=== PATIENT | female | born 1945 | race Caucasian/White ===

== ENCOUNTER 2017-01-29 19:30 | Outpatient (CLI) | payer MEDICARE, OTHER | END 2017-01-29 19:31 | disposition home or self-care (01) | LOC: SLEEPLAB 19:30 | PROVIDERS: ATTEND Family Medicine | DX: G47.33 Obstructive sleep apnea (adult) (pediatric) (principal); E66.9 Obesity, unspecified; R51 Headache | CPT/HCPCS: 95811 ==

== ENCOUNTER 2017-09-25 18:49 | Emergency (ER) | payer MEDICARE, OTHER ==
[2017-09-25 19:38] LABS: Bilirubin Negative (Negative); Blood, Urine Negative (Negative); Clarity Clear (Clear); Glucose, Urine (Dipstick) Negative (Negative); Leukocyte Negative (Negative); Nitrite Negative (Negative); Protein, Urine (Dipstick) Negative (Neg-Trace); Urobilinogen 0.2 mg/dL (0.2-1.0)
[2017-09-25] MEDS ORDERED: Morphine 5 MG/ML SYRINGE ONE (19:45)
[2017-09-25] MEDS ORDERED: Ondansetron HCl/PF 4 MG/2 ML Vial ONE (19:52)
[2017-09-25 20:13] LABS: Eosinophils 7 % (0-10); Hemoglobin 13.8 g/dL (12.0-16.0); Lymphocytes 15 % (21-51); MDiff Complete? YES; Mean Corpuscular HGB CONC 32.1 g/dL (32.0-36.0); Mean Corpuscular Hemoglobin 25.3 pg (27.0-31.0); Mean Corpuscular Volume 78.9 fl (81.0-99.0); Mean Platelet Volume 7.8 fL (7.4-10.4); Monocytes 13 % (0-10); Neutrophil 59 % (42-75); PLT Morphology Comment Appears Adequate; Platelet Count 262 thou/uL (130-400); RBC Distribution Width 13.7 % (11.5-14.5); Reactive Lymphocytes 5 % (0-10); Red Blood Cell (RBC) Count 5.45 mill/uL (4.20-5.40); Stomatocytes SLIGHT = 2-5 cells (100X) (0-1/hpf); White Blood Cell (WBC) Count 13.1 thou/uL (4.8-10.8)
[2017-09-25 20:23] LABS: ALT (SGPT) 17 U/L (8-55); AST (SGOT) 18 U/L (5-34); Albumin 3.8 g/dL (3.4-4.8); Alkaline Phosphatase 55 U/L (40-150); Anion Gap 14 mmol/L (10-20); BUN (Urea Nitrogen) 16 mg/dL (9.8-20.1); Bilirubin, Total 0.5 mg/dL (0.2-1.2); Calc. Creatinine Clearance 0 mL/min (70-130); Calcium 9.7 mg/dL (7.8-10.44); Carbon Dioxide 25 mmol/L (23-31); Chloride 104 mmol/L (98-107); Estimated GFR-MDRD 72; Globulin 3.4 g/dL (2.4-3.5); Glucose 96 mg/dL (83-110); Lipase 32 U/L (8-78); Potassium 4.1 mmol/L (3.5-5.1); Protein, Total 7.2 g/dL (6.0-8.3); Sodium 139 mmol/L (136-145)
--- NOTE | 2017-09-25 21:56 | CT ---
CT ABDOMEN AND PELVIS WITHOUT IV CONTRAST: INDICATIONS: Abdominal pain. Nausea. COMPARISON: CT abdomen from 11/16/2010. TECHNIQUE: Multiple axial tomograms obtained through the abdomen and pelvis without IV enhancement. FINDINGS: Images through the lung bases show evidence of mild atelectasis. No confluent infiltrate. The liver, spleen, and pancreas are unremarkable. 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 This m easures approximately 8 mm. The adrenal glands appear normal. The kidneys show no hydronephrosis. There is no evidence of ureteral calculus or obstruction. There is a 4 mm nonobstructing calculus in the mid pole collecting structures of the left kidney. Small bowel loops appear unremarkable. A tiny linear density extending from the cecum probably repre sents a small, unremarkable appendix. There is no evidence of appendicitis. Colon is unremarkable. Stool and gas seen throughout the colon. Scattered diverticula with diverticulosis of the sigmoid. No evidence of diverticulitis. The uterus and adnexae appear unremarkable for age. Aorta is normal caliber. IMPRESSION: 1. Nonobstructing calculus in the mid pole collecting structures of the left kidney. 2. No acute intraabdominal process. POS: [facility]
== END 2017-09-25 22:28 | disposition home or self-care (01) ==
LOC: SCSER 18:49
DX: R10.31 Right lower quadrant pain (principal); R10.11 Right upper quadrant pain; R19.7 Diarrhea, unspecified; D72.829 Elevated white blood cell count, unspecified; G43.909 Migraine, unspecified, not intractable, without status migrainosus; E03.9 Hypothyroidism, unspecified; I10 Essential (primary) hypertension; J45.909 Unspecified asthma, uncomplicated; Z79.899 Other long term (current) drug therapy
CPT/HCPCS: 36415; 74177; 80053; 81003; 83605; 83690; 85025; 96361; 96374; 96375; J2270; J2405

== ENCOUNTER 2018-06-03 10:15 | Observation (INO) | payer MEDICARE, OTHER ==
[2018-06-03] MEDS ORDERED: Nitroglycerin 0.4 MG TAB 1 EACH ONE (10:52)
[2018-06-03] MEDS ORDERED: Morphine 2 MG/ML SYRINGE ONE (11:15)
[2018-06-03] MEDS ORDERED: Ondansetron PF 4 MG/2 ML Vial ONE (11:15)
[2018-06-03] MEDS ORDERED: Acetaminophen 500 MG TAB ONE (11:15)
[2018-06-03 11:22] LABS: #Basophils 0.1 thou/uL (0.0-0.2); #Eosinphils 0.3 thou/uL (0.0-0.7); #Lymphocytes 1.5 thou/uL (1.20-3.40); #Monocytes 0.6 thou/uL (0.11-0.59); #Neutrophils 3.3 thou/uL (1.40-6.50); %Basophils 1.5 % (0.0-1.0); %Eosinophils 4.9 % (0.0-10.0); %Monocytes 10.3 % (0.0-10.0); %Neutrophils 57.4 % (42.0-75.0); Hemoglobin 12.2 g/dL (12.0-16.0); Mean Corpuscular HGB CONC 31.9 g/dL (32.0-36.0); Mean Corpuscular Hemoglobin 26.7 pg (27.0-31.0); Mean Corpuscular Volume 83.8 fL (78.0-98.0); Mean Platelet Volume 8.2 fL (7.4-10.4); Platelet Count 236 thou/uL (130-400); RBC Distribution Width 13.9 % (11.5-14.5); Red Blood Cell (RBC) Count 4.56 mill/uL (4.20-5.40); White Blood Cell (WBC) Count 5.7 thou/uL (4.8-10.8)
--- NOTE | 2018-06-03 11:24 | RAD ---
FRONTAL VIEW CHEST: Date: 06/03/18 COMPARISON: 08/04/16. INDICATION: Chest pain. FINDINGS: There is enlargement of the cardiac silhouette and pulmonary vasculature. Bibasilar interstitial dens ities are seen, and there is hazy density of the lower chest bilaterally. IMPRESSION: Findings which favor CHF. Mild bilateral pleural fluid is not excluded. Consider follow-up imaging to confirm resolution. POS: [facility]
[2018-06-03 11:46] LABS: ALT (SGPT) 28 U/L (8-55); AST (SGOT) 39 U/L (5-34); Albumin 3.8 g/dL (3.4-4.8); Alkaline Phosphatase 47 U/L (40-150); Anion Gap 15 mmol/L (10-20); BUN (Urea Nitrogen) 13 mg/dL (9.8-20.1); Bilirubin, Total 0.5 mg/dL (0.2-1.2); Calc. Creatinine Clearance 0 mL/min (70-130); Calcium 9.2 mg/dL (7.8-10.44); Carbon Dioxide 19 mmol/L (23-31); Chloride 108 mmol/L (98-107); Estimated GFR-MDRD 66; Globulin 3.2 g/dL (2.4-3.5); Glucose 92 mg/dL (83-110); Potassium 4.1 mmol/L (3.5-5.1); Sodium 138 mmol/L (136-145)
--- NOTE | 2018-06-03 13:35 | RAD ---
3 VIEWS RIGHT SHOULDER: Date: 06/03/18 INDICATION: Right shoulder pain. COMPARISON: 10/05/12. FINDINGS: There is moderate osteoarthritis. No fracture or dislocation. IMPRESSION: Osteoarthritis without evidence of acute fracture involving the right shoulder. POS: [facility]
[2018-06-03 14:32] VITALS: BMI 31.8
[2018-06-03 15:22] LABS: Troponin I Less than 0.010 ng/mL (< 0.028)
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
[2018-06-03 17:36] LABS: Troponin I Less than 0.010 ng/mL (< 0.028)
[2018-06-03] MEDS ORDERED: Ketorolac Tromethamine 30 MG/ML VIAL IVP SCH (17:45)
[2018-06-03] MEDS: HYDROcodone/Acetaminophen 5/325 mg Tablet PO PRN (22:07)
[2018-06-04] MEDS: Levothyroxine Sodium 100 MCG TAB PO SCH (05:45)
[2018-06-04] MEDS: Liothyronine Sodium 5 MCG TAB PO SCH (07:48)
[2018-06-04] MEDS: Leflunomide 10 mg Tablet PO SCH (07:48)
[2018-06-04] MEDS: Fenofibrate Nanocrystallized 145 MG TAB PO SCH (07:50)
[2018-06-04] MEDS: Hydrochlorothiazide 25 MG TAB PO SCH (07:50)
[2018-06-04] MEDS ORDERED: Cetirizine HCl 10 MG TAB PO PRN (08:11)
[2018-06-04] MEDS ORDERED: Cyclobenzaprine 10 MG TAB PO PRN (08:14)
[2018-06-04] MEDS ORDERED: Loratadine 10 MG TAB PO PRN (08:36)
[2018-06-04] MEDS ORDERED: Non-Formulary Item 1 EACH (Cholecalciferol (Vitamin D3) [Vitamin D3] 5,000 UNIT) PO SCH (09:00)
[2018-06-04] MEDS ORDERED: Non-Formulary Item 1 EACH (Esomeprazole Magnesium [Nexium] 20 MG) PO SCH (09:00)
[2018-06-04] MEDS ORDERED: ADENOSINE 60 MG/20 ML VIAL ONE (10:39)
[2018-06-04] MEDS: HYDROcodone/Acetaminophen 5/325 mg Tablet PO PRN ×2 (11:28→23:05)
[2018-06-04] MEDS: cloNIDine 0.1 MG TAB PO PRN (12:05)
[2018-06-04 12:19] LABS: #Basophils 0.1 thou/uL (0.0-0.2); #Eosinphils 0.3 thou/uL (0.0-0.7); #Lymphocytes 1.4 thou/uL (1.20-3.40); #Monocytes 0.5 thou/uL (0.11-0.59); #Neutrophils 4.5 thou/uL (1.40-6.50); %Eosinophils 4.8 % (0.0-10.0); %Monocytes 7.9 % (0.0-10.0); %Neutrophils 66.3 % (42.0-75.0); Hemoglobin 13.9 g/dL (12.0-16.0); Mean Corpuscular HGB CONC 30.8 g/dL (32.0-36.0); Mean Corpuscular Hemoglobin 26.1 pg (27.0-31.0); Mean Corpuscular Volume 84.8 fL (78.0-98.0); Mean Platelet Volume 8.5 fL (7.4-10.4); Platelet Count 256 thou/uL (130-400); Red Blood Cell (RBC) Count 5.32 mill/uL (4.20-5.40); White Blood Cell (WBC) Count 6.9 thou/uL (4.8-10.8)
[2018-06-04 12:41] LABS: ALT (SGPT) 36 U/L (8-55); AST (SGOT) 47 U/L (5-34); Albumin 4.3 g/dL (3.4-4.8); Alkaline Phosphatase 52 U/L (40-150); Anion Gap 14 mmol/L (10-20); BUN (Urea Nitrogen) 16 mg/dL (9.8-20.1); Bilirubin, Total 0.6 mg/dL (0.2-1.2); Calc. Creatinine Clearance 56 mL/min (70-130); Calcium 10.3 mg/dL (7.8-10.44); Carbon Dioxide 24 mmol/L (23-31); Chloride 104 mmol/L (98-107); Estimated GFR-MDRD 52; Glucose 105 mg/dL (83-110); Potassium 3.5 mmol/L (3.5-5.1); Protein, Total 8.3 g/dL (6.0-8.3); Sodium 138 mmol/L (136-145)
--- NOTE | 2018-06-04 14:32 | NM ---
CARDIAC SPECT: 06/04/18 HISTORY: 72-year-old female with chest pain, hypertension. TECHNIQUE: A myocardial perfusion scan was performed using the single isotope one day protocol with technetium 9 9m Sestamibi. 10 millicuries was injected intravenously for the rest exam followed by 32 millicuries for the stress study. Pharmacologic stress with Lexiscan was monitored and interpreted by Dr. Maverick Sarmiento. FINDINGS: Homogeneous tracer distribution is seen in the myocardial segments on stress and rest images without fixed or reversible defects. GATED SPECT LVEF: 81%. WALL MOTION EXAM: Normal. IMPRESSION: Normal myocardial perfusion scan. POS: [facility]
--- NOTE | 2018-06-04 15:18 | PDOC.PN ---
- Subjective Encounter Start Date: 06/04/18 Encounter Start Time: 15:16 Subjective: Patient resting comfortably. Without any complaints. -: Denies any chest pain at present but reports having pain this morning -: before undergoing the stress test. States it was the same pain she had that brought her in, but not as severe. Described as a tightness on the left side, 8/10 in severity. Reports having similar pain during her stress test today. Denies any associated diaphoresis, n/v or sob. Has been afebrile. No sweats. Her last cath was approximately 10 years ago. Reports having issues with high BP. No recent changes or stressors except pain in right shoulder due to rotator cuff tear. Her BP has been 180s systolic. She was checking it every 3 hours at home. - Objective Resuscitation Status - Order Detail: 06/03/18 14:14 Resuscitation Status Routine Resuscitation Status: FULL: Full Resuscitation Discussed with: Patient Vital Signs & Weight: Vital Signs (12 hours) Temp Pulse Resp BP BP Pulse Ox 06/04/18 12:50 166/77 H 06/04/18 12:05 185/80 H 06/04/18 11:53 97.9 F 77 16 185/80 H 99 06/04/18 07:50 98.1 F 82 16 191/84 H 98 Weight Weight 163 lb 4.8 oz I&O: 06/03/18 06/04/18 06/05/18 06:59 06:59 06:59 Intake Total 1441 Output Total 1600 Balance -159 Result Diagrams: 06/04/18 12:04 06/04/18 12:04 Phys Exam - Physical Examination Constitutional: NAD HEENT: PERRLA, moist MMs, oral pharynx no lesions Neck: supple, full ROM Respiratory: clear to auscultation bilateral Cardiovascular: RRR Gastrointestinal: soft, non-tender, no distention, positive bowel sounds Musculoskeletal: no edema, pulses present Neurological: normal sensation, moves all 4 limbs Lymphatic: no nodes Psychiatric: normal affect, A&O x 3 Skin: no rash Dx/Plan (1) Chest pain Code(s): R07.9 - CHEST PAIN, UNSPECIFIED Status: Acute (2) Hypertension Code(s): I10 - ESSENTIAL (PRIMARY) HYPERTENSION Status: Chronic (3) Hyperlipidemia Code(s): E78.5 - HYPERLIPIDEMIA, UNSPECIFIED Status: Chronic (4) Hx of migraines Code(s): Z86.69 - PERSONAL HISTORY OF DIS OF THE NERVOUS SYS AND SENSE ORGANS Status: Chronic - Plan cont current plan of care S/p stress test which was unremarkable. -: S/p Echo: 55-60%, diastolic dysfunction, mild MR/TR. -: Last cath 10 yrs ago (Dr. Lujan). Ongoing intermittent chest pain. -: Awaiting cardiology review as per Dr. Dyer's recommendation. -: Potential need for repeat Cath. Continue to monitor BP. * . Review of Systems - Review of Systems Constitutional: negative: fever, chills, sweats, weakness, malaise, other Eyes: negative: Pain, Vision Change, Conjunctivae Inflammation, Eyelid Inflammation, Redness, Other ENT: negative: Ear Pain, Ear Discharge, Nose Pain, Nose Discharge, Nose Congestion, Mouth Pain, Mouth Swelling, Throat Pain, Throat Swelling Respiratory: negative: Cough, Dry, Shortness of Breath, Hemoptysis, SOB with Excertion, Pleuritic Pain, Sputum, Wheezing Cardiovascular: chest pain. negative: palpitations, orthopnea, paroxysmal nocturnal dyspnea, edema, light headedness Gastrointestinal: negative: Nausea, Vomiting, Abdominal Pain, Diarrhea, Constipation, Melena, Hematochezia Genitourinary: negative: Dysuria, Frequency, Incontinence, Hematuria, Retention Musculoskeletal: Shoulder Pain (right shoulder pain, rotator cuff tear). negative: Neck Pain, Arm Pain, Back Pain, Hand Pain, Leg Pain, Foot Pain Skin: negative: Rash, Lesions, Hoang, Bruising Neurological: negative: Weakness, Numbness, Incoordination, Change in Speech, Confusion, Seizures - Medications/Allergies Allergies/Adverse Reactions: Allergies Allergy/AdvReac Type Severity Reaction Status Date / Time Iodine and Iodide Containing Allergy Severe Anaphylaxis Verified 06/03/18 17:55 Produc amoxicillin [From Augmentin] Allergy Verified 06/03/18 17:55 aspirin Allergy Hives Verified 06/03/18 17:55 clavulanic acid Allergy Verified 06/03/18 17:55 [From Augmentin] corn Allergy Verified 08/05/16 01:46 diclofenac Allergy Verified 06/03/18 17:55 Latex, Natural Rubber Allergy Verified 06/03/18 17:55 shellfish derived Allergy Verified 06/03/18 17:55 sulfamethoxazole Allergy Verified 06/03/18 17:55 [From Bactrim] topiramate [From Topamax] Allergy Headache Verified 06/03/18 17:55 trimethoprim [From Bactrim] Allergy Verified 06/03/18 17:55 zonisamide [From Zonegran] Allergy Headache Verified 06/03/18 17:55 IVP DYE Allergy Anaphylaxis Uncoded 08/05/16 01:46 Medications: Current Medications Hydrocodone Bitart/Acetaminophen (Murdock 5/325) 1 tab PO Q4H PRN PRN Reason: Pain Last Admin: 06/04/18 11:28 Dose: 1 tab Cholecalciferol (Vitamin D3) 5,000 units PO DAILY FORMERLY [facility], [facility]1983 Last Admin: 06/04/18 11:27 Dose: 5,000 units Clonidine (Catapres) 0.1 mg PO PRN PRN PRN Reason: Blood Pressure Last Admin: 06/04/18 12:05 Dose: 0.1 mg Cyclobenzaprine HCl (Flexeril) 10 mg PO TID PRN PRN Reason: Pain Fenofibrate (Tricor) 145 mg PO DAILY FOR[facility]LY [facility], [facility]1983 Last Admin: 06/04/18 07:50 Dose: 145 mg Hydrochlorothiazide (Hydrochlorothiazide) 12.5 mg PO DAILY [facility]LY [facility], [facility] Last Admin: 06/04/18 07:50 Dose: 12.5 mg Leflunomide (Arava) 10 mg PO DAILY FOR[facility]LY [facility], [facility] Last Admin: 06/04/18 07:48 Dose: Not Given Levothyroxine Sodium (Synthroid) 100 mcg PO 0600 FOR[facility]LY [facility], [facility] Last Admin: 06/04/18 05:45 Dose: 100 mcg Liothyronine Sodium (Cytomel) 2.5 mcg PO DAILY [facility], [facility] Last Admin: 06/04/18 07:48 Dose: Not Given Loratadine (Claritin) 10 mg PO DAILYPRN PRN PRN Reason: ALLERGY Metoprolol Succinate (Toprol Xl) 50 mg PO DAILY [facility], [facility] Last Admin: 06/04/18 11:27 Dose: 50 mg Olmesartan (Benicar) 20 mg PO HS [facility] Pantoprazole Sodium (Protonix) 40 mg PO BID [facility], [facility] Last Admin: 06/04/18 11:28 Dose: 40 mg Pneumococcal 13-Valent Conj Vacc (Prevnar) 0.5 ml IM .ONCE ONE Stop: 06/04/18 21:01
[2018-06-04] MEDS ORDERED: Prevnar 13-Val Conj/PF 0.5 ML SYRINGE IM ONE (21:00)
[2018-06-05] MEDS: Levothyroxine Sodium 100 MCG TAB PO SCH (05:01)
[2018-06-05] MEDS: Fenofibrate Nanocrystallized 145 MG TAB PO SCH (09:09)
[2018-06-05] MEDS: Hydrochlorothiazide 25 MG TAB PO SCH (09:09)
[2018-06-05] MEDS: Leflunomide 10 mg Tablet PO SCH (09:09)
[2018-06-05] MEDS: Liothyronine Sodium 5 MCG TAB PO SCH (09:10)
[2018-06-05] MEDS: HYDROcodone/Acetaminophen 5/325 mg Tablet PO PRN (10:29)
[2018-06-05] MEDS: cloNIDine 0.1 MG TAB PO PRN (11:56)
--- NOTE | 2018-06-05 12:39 | PDOC.PN ---
- Subjective Encounter Start Date: 06/05/18 Encounter Start Time: 12:35 Subjective: Patient complaining of a frontal headache with photosensitivity and nausea. -: States it tends to start in her neck and also with pain in right shoulder. -: Recent rotator cuff tear to right shoulder. Denies any vomiting. No numbness tingling. No extremity weakness. Denies any CP/Sob. Has been tolerating food intake. Initially Immitrex felt to be contributing to her symptoms, however her BP has been persistently raised 180s/80s since admission with no improvement off the Immitrex. She states the pain is more prominent on right side of head and around right eye. No fevers or sweats. Otherwise feeling well and without complaints. Has a chronic neck injury and previously recommended surgery for her neck. More recently followed with Neurologist who recommended injections for chronic neck pain. - Objective Resuscitation Status - Order Detail: 06/03/18 14:14 Resuscitation Status Routine Resuscitation Status: FULL: Full Resuscitation Discussed with: Patient Vital Signs & Weight: Vital Signs (12 hours) Temp Pulse Resp BP BP Pulse Ox 06/05/18 11:56 185/80 H 06/05/18 11:50 98 F 72 16 181/84 H 99 06/05/18 08:35 98.6 F 65 16 175/76 H 99 06/05/18 03:44 97.9 F 72 12 125/57 L 98 Weight Weight 160 lb 3.2 oz I&O: 06/04/18 06/05/18 06/06/18 06:59 06:59 06:59 Intake Total 1441 1350 Output Total 1600 1400 Balance -159 -50 Result Diagrams: 06/04/18 12:04 06/04/18 12:04 Phys Exam - Physical Examination Constitutional: NAD Resting comfortably in darkened room. Appears to be in mild discomfort. HEENT: PERRLA, moist MMs, oral pharynx no lesions mild tenderness over right yarsanism and jaw, chronic jaw pain Neck: no nodes, supple, full ROM Respiratory: clear to auscultation bilateral Cardiovascular: RRR Gastrointestinal: soft, non-tender, no distention Musculoskeletal: no edema, pulses present Neurological: normal sensation, moves all 4 limbs Psychiatric: normal affect, A&O x 3 Skin: no rash Dx/Plan (1) Chest pain Code(s): R07.9 - CHEST PAIN, UNSPECIFIED Status: Resolved (2) Hypertension Code(s): I10 - ESSENTIAL (PRIMARY) HYPERTENSION Status: Chronic (3) Hyperlipidemia Code(s): E78.5 - HYPERLIPIDEMIA, UNSPECIFIED Status: Chronic (4) Hx of migraines Code(s): Z86.69 - PERSONAL HISTORY OF DIS OF THE NERVOUS SYS AND SENSE ORGANS Status: Chronic (5) Headache Code(s): R51 - HEADACHE Status: Acute (6) Uncontrolled hypertension Code(s): I10 - ESSENTIAL (PRIMARY) HYPERTENSION Status: Acute - Plan cont current plan of care Cleared from Cardiology standpoint, per Dr. Sarmiento, given results of Echo -: and stress test. No indication for repeat Cath at present. Follow-up as OP. -: ESQUEDA, gradual in onset from neck to front of head. Tender to Rt face. -: BP uncontrolled, 180s systolic, despite being off Immitrex. -: Check ESR/CRP. Amlodipine 2.5 mg PO x 1, Motrin 800 mg PO TID. Will reassess. Discussed with Dr. Caro who agrees with plan as above.
[2018-06-05] MEDS ORDERED: Ibuprofen 800 MG TAB PO SCH ×2 (12:45→14:00)
[2018-06-05] MEDS ORDERED: Amlodipine 5 MG TAB PO SCH (12:45)
--- NOTE | 2018-06-05 15:34 | PDOC.EVN ---
Event Note - Event Note Event Note: management , discharge with gonzález Randolph
[2018-06-05 16:38] VITALS: BP 141/65; TEMP 97.4
--- NOTE | 2018-06-06 13:25 | DIS ---
DATE OF ADMISSION: 06/03/2018 DATE OF DISCHARGE: 06/05/2018 CONSULTING PHYSICIAN: Dr. Sarmiento of Cardiology. DISCHARGE DIAGNOSES: 1. Chest pain, acute coronary syndrome ruled out. 2. Migraine headaches. 3. Hypertension. 4. Hypothyroidism. 5. Hyperlipidemia. HOSPITAL COURSE: Ms. Eisenberg is a very pleasant 72-year-old woman, who initially presented with chest pain and noted to have high blood pressure that seemed to be associated with taking Imitrex for migraine headaches. The patient was admitted for chest pain rule out and it was believed the hypertension was associated with Imitrex. Her headaches were well controlled with Motrin throughout her hospital stay. Her hypertension also improved. She had been started on her usual antihypertensives and was also started on amlodipine 2.5 mg p.o. daily. Investigations included serial troponins, which were negative. A BNP was done, which was normal at 92.5. Laboratory studies, otherwise unremarkable. She underwent imaging studies including a chest x-ray, which showed findings consistent with CHF and no definite evidence of pleural fluid. She underwent a stress test, which per report came back as normal myocardial perfusion scan. She also underwent an echocardiogram showing an EF of 55% to 60% with E/A flow reversal suggestive of diastolic dysfunction. There was mild mitral regurgitation and mild tricuspid regurgitation present. Given the unremarkable cardiac investigations, Dr. Sarmiento felt there was no indication for assessment by Cardiology as an inpatient. Therefore, deferred the consultation. The patient remained chest pain-free throughout her hospital stay. She continued with intermittent mild headaches. She suffers from chronic joint aches and chronic neck pain following a previous neck injury for which she was previously recommended surgery. She also reported having pain in her right shoulder due to recent rotator cuff tear. The patient had no focal neurology. We did obtain an ESR given complaint of headaches being more prominent on the right side near her faith to ensure there is no possibility of giant cell arteritis. Her ESR came back normal at 48. On day of discharge, her blood pressure was significantly improved to 141/65. She is therefore medically cleared for discharge home. REVIEW OF SYSTEMS: On day of discharge, she denies having any nausea or vomiting. Her headaches have improved. Denies having any visual disturbances. She reports a normal gait and has been tolerating food intake without any difficulties. No abdominal pain or cramping. No urinary symptoms. Denies having any issues with her bowel movements. PHYSICAL EXAMINATION: GENERAL: The patient appears well developed, well nourished, in no acute distress. VITAL SIGNS: Temperature 97.4, pulse 69, respirations 16, O2 saturation 92% on room air, blood pressure 141/65. HEENT: Normocephalic, atraumatic. Pupils are equal, round, and reactive to light. No scleral icterus. Oropharynx is clear. NECK: Supple. No lymphadenopathy. LUNGS: Clear to auscultation bilaterally without wheezes, rales, or rhonchi. CARDIAC: Regular rhythm. ABDOMEN: Soft, nontender, nondistended with bowel sounds present. EXTREMITIES: No edema. Limited range of motion due to discomfort in the right shoulder. NEUROLOGIC: No focal neurology. Alert and oriented x3. SKIN: Without rash or jaundice. LABORATORY DATA: White blood count 6.9, hemoglobin 13.9, hematocrit 45.1, platelets 256. ESR 48. Sodium 138, potassium 3.5, BUN 16, creatinine 1.04, GFR 52, total bilirubin 0.6, AST 47, ALT 36, alkaline phosphatase 52. BNP 92.5. Initial troponins were negative x3. IMAGING DATA: 1. Chest x-ray, 06/03/2018, enlargement of the cardiac silhouette and pulmonary vasculature. Bibasilar interstitial density seen with hazy density in the lower chest bilaterally. 2. Right shoulder x-ray, 06/03/2018. Osteoarthritis without evidence of acute fracture involving the right shoulder. 3. Stress test, June 04, 2018. Normal myocardial perfusion scan. 4. Echo, 06/04/2018. EF estimated at 55% to 60%. E/A flow reversal noted. Suggestive of diastolic dysfunction. Mild mitral regurgitation present. Mild tricuspid regurgitation. DISCHARGE MEDICATIONS: 1. The patient advised to resume home medications. In addition to this, she was given a prescription for Motrin 100 mg p.o. q.8 hours as needed for pain. 2. She was also started on amlodipine 2.5 mg p.o. daily. CONDITION: Stable at discharge. ACTIVITY: As tolerated. DIET: Heart healthy. FOLLOWUP: The patient will re-establish care with Dr. Lujan as an outpatient. She was advised to follow up with her primary care physician within 1 week. The patient's case was discussed with Dr. Caro, who agrees with plan of care as described above. Job ID: [id number]
--- NOTE | 2018-06-08 13:10 | STRESS ---
Acquisition Time: 2018-06-04 09:34:08 Total Exercise Time: 00:04:00 Test Indications: CHEST PAIN Medications: Protocol: ADENOSINE Max HR: 106 BPM 72% of Pred: 147 BPM Max BP: 152/080 mmHG Max Work Load: 1.0 METS RESTING ECG: NORMAL SINUS RHYTHM AT 92 BPM WITH POOR R-WAVE PROGRESSION AND FREQUENT PVC'S SYMPTOMS: CHEST PAIN NORMAL BP RESPONSE ECTOPY: RARE PVC'S ECG STRESS: NO SIGNIFICANT CHANGES INTERPRETATION: AWAIT NUCLEAR IMAGES FOR DEFINITIVE DIAGNOSIS Confirmed by SACHA STOLL ([id number]), newspaper editor managing BRANDON SIMMS ([id number]) on 06/08/2018 1:10:13 PM Referred By: MD Michelle GONZALEZ Confirmed By:SACHA STOLL
== END 2018-06-05 19:36 | disposition home or self-care (01) ==
LOC: ERS 10:15 → 2SW 14:22
PROVIDERS: ADMIT Internal Medicine; ATTEND Internal Medicine
DX: R07.9 Chest pain, unspecified (principal); M19.011 Primary osteoarthritis, right shoulder; I10 Essential (primary) hypertension; E03.9 Hypothyroidism, unspecified; E78.5 Hyperlipidemia, unspecified; G43.909 Migraine, unspecified, not intractable, without status migrainosus; Z79.890 Hormone replacement therapy; Z79.899 Other long term (current) drug therapy; Z88.0 Allergy status to penicillin; Z88.1 Allergy status to other antibiotic agents; Z88.6 Allergy status to analgesic agent; Z88.2 Allergy status to sulfonamides; Z88.8 Allergy status to other drugs, medicaments and biological substances; Z91.013 Allergy to seafood; Z91.018 Allergy to other foods; Z91.040 Latex allergy status
CPT/HCPCS: 71045; 73030; 78452; 80053 ×2; 83880; 84484 ×2; 85025 ×2; 85652; 86140; 93005; 93017; 93306; 96374; 96375 ×2; 99285; A9500; G0378 ×3; 36415; J0153; J1885; J2270; J2405

== ENCOUNTER 2018-10-25 14:05 | Emergency (ER) | payer MEDICARE, OTHER ==
[2018-10-25 14:51] LABS: #Eosinphils 0.3 thou/uL (0.0-0.7); #Lymphocytes 1.6 thou/uL (1.20-3.40); #Monocytes 1.2 thou/uL (0.11-0.59); #Neutrophils 10.7 thou/uL (1.40-6.50); %Basophils 0.2 % (0.0-1.0); %Eosinophils 2.3 % (0.0-10.0); %Lymphocytes 11.5 % (21.0-51.0); %Monocytes 8.7 % (0.0-10.0); %Neutrophils 77.3 % (42.0-75.0); Hemoglobin 11.9 g/dL (12.0-16.0); Mean Corpuscular HGB CONC 31.5 g/dL (32.0-36.0); Mean Corpuscular Volume 85.9 fL (78.0-98.0); Mean Platelet Volume 6.9 fL (7.4-10.4); Platelet Count 320 thou/uL (130-400); RBC Distribution Width 15.3 % (11.5-14.5); White Blood Cell (WBC) Count 13.8 thou/uL (4.8-10.8)
[2018-10-25 15:16] LABS: ALT (SGPT) 21 U/L (8-55); AST (SGOT) 22 U/L (5-34); Albumin 3.9 g/dL (3.4-4.8); Alkaline Phosphatase 74 U/L (40-150); Anion Gap 12 mmol/L (10-20); BUN (Urea Nitrogen) 24 mg/dL (9.8-20.1); Bilirubin, Total 0.3 mg/dL (0.2-1.2); CK (CPK) 39 U/L (29-168); Calc. Creatinine Clearance 0 mL/min (70-130); Calcium 10.1 mg/dL (7.8-10.44); Carbon Dioxide 28 mmol/L (23-31); Chloride 101 mmol/L (98-107); Estimated GFR-MDRD 39; Globulin 3.4 g/dL (2.4-3.5); Glucose 125 mg/dL (83-110); Potassium 4.4 mmol/L (3.5-5.1); Protein, Total 7.3 g/dL (6.0-8.3); Sodium 137 mmol/L (136-145)
[2018-10-25] MEDS ORDERED: Albuterol Sulfate 2.5 mg/3 ml Neb ONE (15:19)
[2018-10-25] MEDS ORDERED: predniSONE 20 MG TAB ONE (15:22)
--- NOTE | 2018-10-25 15:28 | RAD ---
PA CHEST: Date: 10/25/18 HISTORY: Chest pain. COMPARISON: 06/03/18. FINDINGS: Stranding and interstitial prominence in the lung bases appears unchanged, indicating chronic finding s. Upper lung martínez remain clear and unchanged in appearance. Vasculature is normal and stable. Hear t size is unchanged and upper normal. IMPRESSION: Stable chest findings. POS: [facility]
== END 2018-10-25 18:21 | disposition home or self-care (01) ==
LOC: ERS 14:05
DX: J45.909 Unspecified asthma, uncomplicated (principal); G43.909 Migraine, unspecified, not intractable, without status migrainosus; E03.9 Hypothyroidism, unspecified; I10 Essential (primary) hypertension; M19.90 Unspecified osteoarthritis, unspecified site; Z79.899 Other long term (current) drug therapy
CPT/HCPCS: 36415; 71045; 80053; 82550; 83880; 84484; 85025; 93005; 94640; J7512; J7611; J7620

== ENCOUNTER 2019-06-10 16:07 | Outpatient (CLI) | payer MEDICARE, OTHER ==
--- NOTE | 2019-06-10 16:51 | MMO ---
Bilateral MAMMO Bilat Screen DDI+INO. CLINICAL HISTORY: Patient is 73 years old and is seen for screening. The patient has no family history of breast cancer. The patient has no personal history of cancer. VIEWS: The views performed were: bilateral craniocaudal with tomosynthesis and bilateral mediolateral oblique with tomosynthesis. FILMS COMPARED: The present examination has been compared to prior imaging studies performed at [facility] on 05/08/2014, and at [facility] on 11/15/2011, 10/22/2015 and 12/08/2016. This study has been interpreted with the assistance of computer-aided detection. MAMMOGRAM FINDINGS: There are scattered fibroglandular densities. There are no suspicious masses, suspicious calcifications, or new areas of architectural distortion. IMPRESSION: THERE IS NO MAMMOGRAPHIC EVIDENCE OF MALIGNANCY. A ROUTINE FOLLOW-UP MAMMOGRAM IN 1 YEAR IS RECOMMENDED. THE RESULTS OF THIS EXAM WERE SENT TO THE PATIENT. ACR BI-RADS Category 1 - Negative MAMMOGRAPHY NOTE: 1. A negative mammogram report should not delay a biopsy if a dominant of clinically suspicious mass is present. 2. Approximately 10% to 15% of breast cancers are not detected by mammography. 3. Adenosis and dense breasts may obscure an underlying neoplasm. Reported by: Goran JAFFE Electonically Signed: [id number]
== END 2019-06-10 16:08 | disposition home or self-care (01) ==
LOC: BICMAMMO 16:07
PROVIDERS: ATTEND Family Medicine
DX: Z12.31 Encounter for screening mammogram for malignant neoplasm of breast (principal)
CPT/HCPCS: 77063; 77067

== ENCOUNTER 2020-04-02 14:45 | Observation (INO) | payer MEDICARE, OTHER ==
[2020-04-02] MEDS ORDERED: Nitroglycerin 2% Ointment 1 INCH/1 GM Packet ONE (15:49)
--- NOTE | 2020-04-02 15:53 | RAD ---
PORTABLE CHEST ONE VIEW: 04/02/20 at 3:44 p.m. HISTORY: Hypertension with chest pain. Dizziness. COMPARISON: 10/25/18. FINDINGS: The heart size remains upper limits of normal. Mild scarring of the lung bases again noted. No lobar consolidation, pneumothoraces, or pleural effusions are seen. IMPRESSION: Stable exam. No acute process. POS: AH
[2020-04-02 16:06] LABS: #Basophils 0.1 thou/uL (0.0-0.2); #Eosinphils 0.5 thou/uL (0.0-0.7); #Lymphocytes 2.6 thou/uL (1.20-3.40); #Monocytes 0.9 thou/uL (0.11-0.59); #Neutrophils 5.7 thou/uL (1.40-6.50); %Basophils 1.3 % (0.0-1.0); %Eosinophils 4.7 % (0.0-10.0); %Monocytes 8.9 % (0.0-10.0); %Neutrophils 58.1 % (42.0-75.0); Hemoglobin 13.2 g/dL (12.0-16.0); Mean Corpuscular HGB CONC 33.2 g/dL (32.0-36.0); Mean Corpuscular Hemoglobin 28.9 pg (27.0-31.0); Mean Platelet Volume 7.2 fL (7.4-10.4); Platelet Count 219 thou/uL (130-400); Red Blood Cell (RBC) Count 4.58 mill/uL (4.20-5.40); White Blood Cell (WBC) Count 9.8 thou/uL (4.8-10.8)
[2020-04-02 16:36] LABS: ALT (SGPT) 24 U/L (8-55); AST (SGOT) 27 U/L (5-34); Alkaline Phosphatase 54 U/L (40-110); Anion Gap 17 mmol/L (10-20); BUN (Urea Nitrogen) 28 mg/dL (9.8-20.1); Bilirubin, Total 0.3 mg/dL (0.2-1.2); Calc. Creatinine Clearance 0 mL/min (70-130); Calcium 9.5 mg/dL (7.8-10.44); Carbon Dioxide 23 mmol/L (23-31); Chloride 104 mmol/L (98-107); Globulin 2.9 g/dL (2.4-3.5); Glucose 110 mg/dL (83-110); Lipase 51 U/L (8-78); Potassium 4.2 mmol/L (3.5-5.1); Protein, Total 6.9 g/dL (6.0-8.3); Sodium 140 mmol/L (136-145)
[2020-04-02 19:57] LABS: Troponin I 0.026 ng/mL (< 0.028)
[2020-04-02] MEDS ORDERED: Nitroglycerin 0.4 MG TAB (25 Tab Bottle) SL PRN (21:16)
[2020-04-02] MEDS ORDERED: Dextrose 5% in Water 1,000 ML IV PRN (21:18)
[2020-04-02] MEDS ORDERED: Dextrose 50% Abboject 50 ML SYRINGE SLOW IVP PRN (21:18)
[2020-04-02] MEDS ORDERED: HumaLOG 300 UNITS/3 ML VIAL SC PRN ×2 (21:18)
[2020-04-02] MEDS ORDERED: Ondansetron ODT 4 MG TAB PO PRN (21:20)
[2020-04-02] MEDS ORDERED: Acetaminophen 325 MG TAB PO PRN (21:20)
[2020-04-02] MEDS ORDERED: Calcium Carbonate 500 MG ChewTAB PO PRN (21:20)
[2020-04-02] MEDS ORDERED: Ondansetron PF 4 MG/2 ML Vial IVP PRN (21:20)
[2020-04-02 22:17] LABS: Troponin I 0.018 ng/mL (< 0.028)
[2020-04-02] MEDS ORDERED: Clopidogrel Bisulfate 75 MG TAB PO SCH (23:00)
--- NOTE | 2020-04-02 23:01 | ULT ---
Carotid arterial Doppler ultrasound: 04/02/2020 COMPARISON: None HISTORY: Hypertension, vision changes, assess for carotid stenosis TECHNIQUE: Multiplanar grayscale sonographic imaging of the arterial structures of the neck obtained with Doppler interrogation including color flow and spectral analysis. FINDINGS: Carotid and vertebral vasculature demonstrates antegrade blood flow and normal arterial wav eforms bilaterally. Peak systolic velocity (centimeters per second) is as follows: Right common carotid artery 125 Right external carotid artery 109 Right internal carotid artery 91 Left common carotid artery 124 Left external carotid artery 95 Left internal carotid artery 98 ICA/CCA ratio is 0.7 on the right and 0.8 on the left. IMPRESSION: No hemodynamically significant stenosis on the basis of sonographic velocity criteria.
--- NOTE | 2020-04-02 23:07 | PDOC.HHP ---
Hospitalist HPI - History of Present Illness Chest pain History of Present Illness: PCP: Dr. Maxx Padilla The patient is a 74-year-old female with a past medical history significant for HTN, HLD, DM 2, unknown cardiac arrhythmia, Aure's thyroiditis, asthma, and GERD that presents to the emergency department for the above complaint. The patient reports developing substernal chest pain over the past 7 days, radiating to the jaw and the neck intermittently, described as dull, tightness, exacerbated with exertion and relieved by rest. She reports associated shortness of breath and heart palpitations. Also she reports that her blood pressure has been unusually elevated. She reports systolic blood pressure readings in the 200s. She has been taking clonidine as needed, which she says only slightly lowers her blood pressure and actually increases her heart rate. She reports associated "mental fogginess", lightheadedness and headache. Her lightheadedness is associated with standing from a sitting position. Her headache is generalized, gradual onset, described as aching. She denies fever or neck stiffness. No recent fall/trauma. No history of DVT/PE. She is not on hormone therapy. She denies any urinary incontinence or ataxia. No focal motor weakness to her extremities. She denies any cough, wheezing. She has a history of asthma, however, she says it is well controlled. She denies any abdominal pain, nausea, vomiting, hemoptysis, hematochezia/melena. She denies any dysuria or hematuria. She reports that she had a heart catheterization in 2008, which was negative according to the patient. ED Course: Presented hypertensive, BP 174/79, NL HR, RR, SPO2, afebrile. Medications: Nitro-Bid paste Hospitalist ROS - Review of Systems All other systems reviewed; all pertinent +/- noted in HPI/Subj - Medication Medications: Medication Instructions Recorded Confirmed Type Hyoscyamine Sulfate [Levsin] 0.125 mg PO PRN PRN 10/05/12 06/03/18 History Levothyroxine Sodium [Synthroid] 100 mcg PO DAILY 10/05/12 06/03/18 History Metoprolol Succinate [Toprol XL] 50 mg PO BID 10/05/12 06/03/18 History Olmesartan Medoxomil [Benicar] 20 mg PO HS 10/05/12 06/03/18 History Cetirizine HCl [Zyrtec] 10 mg PO DAILY PRN 08/05/16 06/03/18 History Cholecalciferol (Vitamin D3) 5,000 unit PO DAILY 08/05/16 06/03/18 History [Vitamin D3] Clonidine HCl 1 tablet PO PRN PRN 08/05/16 06/03/18 History Hydrochlorothiazide 0.5 tab PO DAILY 08/05/16 06/03/18 History Liothyronine Sodium 0.5 tab PO 1200 08/05/16 06/03/18 History Cyclobenzaprine [Flexeril] 10 mg PO TID PRN 06/03/18 06/03/18 History Esomeprazole Magnesium [Nexium] 20 mg PO BID 06/03/18 06/03/18 History Estradiol [Estrace 0.01% Vaginal 1 gm VAG .2X'S/WEEK 06/03/18 06/03/18 History Cream] Fenofibrate 160 mg PO DAILY 06/03/18 06/03/18 History Fluorouracil [Fluorouracil 5% 1 applic TP DAILY 06/03/18 06/03/18 History Topical Solution] Hypochlorous Acid/Sodium Chlor 2 spray TP BID 06/03/18 06/03/18 History [Avenova Lid-Lash [place]] Leflunomide [Arava] 10 mg PO HS 06/03/18 06/03/18 History Ondansetron [Zofran ODT] 4 mg PO Q8HR 06/03/18 06/03/18 History SUMAtriptan Succinate [Imitrex] 100 mg PO PRN PRN 06/03/18 06/03/18 History Triamcinolone Acetonide [Nasacort 2 spray EA NARE DAILY 06/03/18 06/03/18 History Allergy 24 HR] Amlodipine [Norvasc] 2.5 mg PO DAILY #14 tab 06/05/18 Rx Ibuprofen [Motrin] 800 mg PO Q8HR #30 tab 06/05/18 Rx Allergies Iodine and Iodide Containing Produc Allergy (Severe, Verified 07/09/19 07:16) Anaphylaxis amoxicillin [From Augmentin] Allergy (Verified 04/02/20 19:48) GI upset aspirin Allergy (Verified 04/02/20 19:48) Hives clavulanic acid [From Augmentin] Allergy (Verified 04/02/20 19:48) chest tightness high BP corn Allergy (Verified 04/02/20 19:48) Hives diclofenac Allergy (Verified 04/02/20 19:48) Tightness in chest high BP Latex, Natural Rubber Allergy (Verified 04/02/20 19:48) Rash "blisters" shellfish derived Allergy (Verified 04/02/20 19:48) sulfamethoxazole [From Bactrim] Allergy (Verified 04/02/20 19:48) "raises blood pressure" topiramate [From Topamax] Allergy (Verified 04/02/20 19:48) Headache "headache and tremors" trimethoprim [From Bactrim] Allergy (Verified 04/02/20 19:48) zonisamide [From Zonegran] Allergy (Verified 04/02/20 19:48) Headache "headache and tremors" IVP DYE Allergy (Uncoded 07/09/19 07:16) Anaphylaxis 04/02/20 21:20 Resuscitation Status: FULL: Full Resuscitation Discussed with: patient Hospitalist History - Past Medical History Source: patient, RN notes reviewed (Hyperlipidemia) Cardiac: reports: HTN, Hyperlipidemia, Other (Unknown arrhythmia) Pulmonary: reports: asthma (DM2) Gastrointestinal: reports: GERD Musculoskeletal: reports: Osteoarthritis (Severe) Endocrine: reports: Diabetes (Type II), Hypothyroidism (Aure's) - Past Surgical History Past Surgical History: reports: Other (Bilateral carpal tunnel, tubal ligation, uterine/ovarian cyst, D&C) - Family History Family History: reports: cardiac disorder (Sibling), cerebrovascular accident (Sibling) - Social History Smoking Status: Never smoker Drugs: reports: none Living Situation: With Family Activity level: independent ambulation - Exam General Appearance: NAD, awake alert. negative: ill appearing Eye: PERRL, anicteric sclera ENT: normocephalic atraumatic Neck: supple, symmetric Neck - other findings: No carotid bruit appreciated Heart: RRR, no murmur, no gallops, no rubs, normal peripheral pulses Respiratory: CTAB, no wheezes, no rales, no ronchi, normal chest expansion, no tachypnea Gastrointestinal: soft, non-tender, non-distended, normal bowel sounds, no bruit, no guarding, no rigidity Gastrointestinal - other findings: Negative Rovsing sign, negative Miller sign Extremities: no cyanosis, no edema Skin: no rashes Neurological: cranial nerve grossly intact, no focal deficits Musculoskeletal: normal tone, normal strength Psychiatric: normal affect, A&O x 3 Hospitalist Results - Labs Result Diagrams: 04/02/20 15:57 04/02/20 15:57 Lab results: WBC 9.8 thou/uL (4.8-10.8) 04/02/20 15:57 Hgb 13.2 g/dL (12.0-16.0) 04/02/20 15:57 Hct 39.8 % (36.0-47.0) 04/02/20 15:57 MCV 87.0 fL (78.0-98.0) 04/02/20 15:57 Plt Count 219 thou/uL (130-400) 04/02/20 15:57 Neutrophils % 58.1 % (42.0-75.0) 04/02/20 15:57 Sodium 140 mmol/L (136-145) 04/02/20 15:57 Potassium 4.2 mmol/L (3.5-5.1) 04/02/20 15:57 Chloride 104 mmol/L (98-107) 04/02/20 15:57 Carbon Dioxide 23 mmol/L (23-31) 04/02/20 15:57 BUN 28 mg/dL (9.8-20.1) H 04/02/20 15:57 Creatinine 1.50 mg/dL (0.6-1.1) H 04/02/20 15:57 Glucose 110 mg/dL (83-110) 04/02/20 15:57 Calcium 9.5 mg/dL (7.8-10.44) 04/02/20 15:57 Total Bilirubin 0.3 mg/dL (0.2-1.2) 04/02/20 15:57 AST 27 U/L (5-34) 04/02/20 15:57 ALT 24 U/L (8-55) 04/02/20 15:57 Alkaline Phosphatase 54 U/L (40-110) 04/02/20 15:57 Troponin I 0.018 ng/mL (< 0.028) 04/02/20 21:35 B-Natriuretic Peptide 44.4 pg/mL (0-100) 04/02/20 21:35 Serum Total Protein 6.9 g/dL (6.0-8.3) 04/02/20 15:57 Albumin 4.0 g/dL (3.4-4.8) 04/02/20 15:57 Lipase 51 U/L (8-78) 04/02/20 15:57 - EKG Interpretation EKG: Normal sinus rhythm T wave inversions in lateral leads I and aVL, no change from most recent comparison - Radiology Interpretation Chest x-ray Status: report reviewed by me Additional Comment: No acute process Hospitalist H&P A/P - Problem (1) Chest pain Code(s): R07.9 - CHEST PAIN, UNSPECIFIED Status: Acute (2) Uncontrolled hypertension Code(s): I10 - ESSENTIAL (PRIMARY) HYPERTENSION Status: Acute (3) SUSHIL (acute kidney injury) Code(s): N17.9 - ACUTE KIDNEY FAILURE, UNSPECIFIED Status: Acute (4) DM2 (diabetes mellitus, type 2) Status: Chronic Qualifiers: Diabetes mellitus assisted insulin use: without assisted use (5) HTN (hypertension) Code(s): I10 - ESSENTIAL (PRIMARY) HYPERTENSION Status: Chronic (6) HLD (hyperlipidemia) Code(s): E78.5 - HYPERLIPIDEMIA, UNSPECIFIED Status: Chronic (7) GERD (gastroesophageal reflux disease) Code(s): K21.9 - GASTRO-ESOPHAGEAL REFLUX DISEASE WITHOUT ESOPHAGITIS Status: Chronic (8) 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 Admit to telemetry floor, observation status. Expected length of stay less than 2 midnights. Presented hypertensive, NL HR, RR, SPO2, afebrile. EKG normal sinus rhythm, T wave inversions in the lateral leads, no change from previous comparison. CXR no acute process. Troponins 0.026, 0.026 BUN 28, creatinine 1.50, GFR 34 #Chest pain Heart score 5, Wells PE score 0 Trend troponins, check BNP, TSH, FLP, mag level Give Plavix. Patient has allergy to aspirin. Start atorvastatin. N.p.o. midnight. Nuc med cardiac stress test. Echocardiogram. #Uncontrolled hypertension Reported SBP 200s. Clonidine as needed with no relief. Reported "mental fogginess", light headed with standing Check orthostatic VS Order carotid Doppler ultrasound. Monitor blood pressure. Restart home dose metoprolol and Cardizem. #SUSHIL Presented creatinine 1.5, baseline appears to be around 1.0 Gentle IV fluid hydration. Avoid nephrotoxic medications. Recheck levels in a.m. #DM2 Chronic, well controlled. Takes metformin at home. Hold metformin. Start moderate ISS. Accu-Cheks AC at bedtime. #HTN Restart home dose metoprolol and diltiazem. #HLD Check FLP. Takes fenofibrate at home. Restart home medication. #GERD Start Protonix. 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 Restart home medications. Check TSH. #Asthma Chronic, well controlled. Takes duo nebs, Symbicort and Spiriva at home. Restart home medications when reconciled by nursing. #Osteoarthritis Patient reports severe case, might be RA. Takes methotrexate and Humira at home. Restart home medications when reconciled by nursing. SCDs for DVT prophylaxis. Protonix for GI prophylaxis. Full code. Discussed case with Dr. Perry.
[2020-04-02] MEDS: Nitroglycerin 2% Ointment 1 INCH/1 GM Packet TOP SCH (23:08)
[2020-04-02] MEDS: Sodium Chloride 0.9% 1,000 ML IV SCH (23:09)
[2020-04-03 03:17] VITALS: BMI 33.3
[2020-04-03 04:47] LABS: #Basophils 0.1 thou/uL (0.0-0.2); #Eosinphils 0.4 thou/uL (0.0-0.7); #Lymphocytes 2.3 thou/uL (1.20-3.40); #Monocytes 0.8 thou/uL (0.11-0.59); #Neutrophils 4.1 thou/uL (1.40-6.50); %Lymphocytes 29.9 % (21.0-51.0); %Monocytes 10.9 % (0.0-10.0); %Neutrophils 53.3 % (42.0-75.0); Hemoglobin 11.4 g/dL (12.0-16.0); Mean Corpuscular HGB CONC 33.3 g/dL (32.0-36.0); Mean Corpuscular Hemoglobin 28.9 pg (27.0-31.0); Mean Corpuscular Volume 86.9 fL (78.0-98.0); Mean Platelet Volume 7.4 fL (7.4-10.4); Platelet Count 202 thou/uL (130-400); RBC Distribution Width 14.9 % (11.5-14.5); Red Blood Cell (RBC) Count 3.95 mill/uL (4.20-5.40); White Blood Cell (WBC) Count 7.6 thou/uL (4.8-10.8)
[2020-04-03 05:08] LABS: Anion Gap 12 mmol/L (10-20); BUN (Urea Nitrogen) 26 mg/dL (9.8-20.1); Calc. Creatinine Clearance 49 mL/min (70-130); Calcium 8.6 mg/dL (7.8-10.44); Carbon Dioxide 25 mmol/L (23-31); Cardiac Risk 4.4 (Less than 4.5); Chloride 106 mmol/L (98-107); Cholesterol 160 mg/dl (< 200 Desired); Glucose 98 mg/dL (83-110); HDL Cholesterol 36 mg/dL (>60 Neg Risk); LDL Cholesterol, Calculated 94 mg/dL; Magnesium 1.8 mg/dL (1.6-2.6); Potassium 3.9 mmol/L (3.5-5.1); Sodium 139 mmol/L (136-145); Triglycerides 151 mg/dL (Less than 150)
[2020-04-03 05:46] LABS: SARS-CoV-2 MS2 Positive; SARS-CoV-2 N Gene Negative; SARS-CoV-2 S Gene Negative; SARS-CoV-2 by NAA Not Detected (NotDetected); SARS-CoV-2 orf1ab Negative
[2020-04-03] MEDS: Nitroglycerin 2% Ointment 1 INCH/1 GM Packet TOP SCH ×2 (06:57→14:15)
[2020-04-03] MEDS ORDERED: FLU VACC QS2020-21(65YR UP)/PF 240 MCG/0.7 ML SYRINGE IM ONE (09:00)
[2020-04-03] MEDS ORDERED: Regadenoson 0.4 MG/5 ML SYRINGE ONE (11:06)
[2020-04-03 14:04] VITALS: TEMP 98.5
--- NOTE | 2020-04-03 14:32 | NM ---
EXAM: CARDIAC SPECT HISTORY: Chest pain, asthma, hypertension, diabetes TECHNIQUE: A myocardial perfusion scan was performed using the single isotope 1 day protocol with yadira hnetium 99m sestamibi. [10 mCi] was injected intravenously for the rest exam followed by 30 mCi for the stress study. Pharmacologic stress with Lexiscan was monitored and interpreted by the physician's surgical physician assistant. FINDINGS: Homogeneous tracer distribution is seen in the myocardial segments on stress and rest image s without fixed or reversible defects. Gated SPECT LVEF: 76% Wall motion exam: Normal IMPRESSION: Normal myocardial perfusion scan
--- NOTE | 2020-04-03 14:48 | PDOC.DS.DS ---
Provider - Provider Date of Admission: 04/02/20 17:48 Admitting Provider: Landon Hernandez DO Primary Care Physician: Maxx Padilla MD Course - Hospital Course Hospital Course: 74/F with PMH HTN, DM 2, asthma presents for chest pain. Admit to telemetry floor, observation status. Expected length of stay less than 2 midnights. Presented hypertensive, NL HR, RR, SPO2, afebrile. EKG normal sinus rhythm, T wave inversions in the lateral leads, no change from previous comparison. CXR no acute process. Troponins 0.026, 0.026 BUN 28, creatinine 1.50, GFR 34 Orthostatic vitals negative Carotid Doppler no significant stenosis Stress test negative #Uncontrolled hypertension Restart home dose metoprolol and Cardizem. -Patient is advised to take the medications regularly and have blood pressure readings and follow with the primary care physician. She is on diltiazem at 120 mg daily as well as Toprol-XL 50 mg twice a day. Her latest blood pressure readings where 143 and 125 systolic. So did not add any new medications at the time of discharge. #SUSHIL -Resolved with hydration #DM2 Chronic, well controlled. Takes metformin at home. Hold metformin. Start moderate ISS. Accu-Cheks AC at bedtime. #HTN Restart home dose metoprolol and diltiazem. #HLD -LDL is or around 100 started her on Lipitor and discharged with the same. . 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 --TSh in the normal range Medically stable to be discharged home today and follow with the primary care in 1 week. Discharge time over 30 minutes Resuscitation Status: 04/02/20 21:20 Resuscitation Status Routine Co-Sign Provider: Resuscitation Status: FULL: Full Resuscitation Discussed with: patient - Labs Lab Results: 04/03/20 04:26 04/03/20 04:26 Abnormal Lab Results - Last 48 hrs 04/02/20 15:57: RDW 15.0 H, MPV 7.2 L, Basophils % 1.3 H, Monocytes # 0.9 H 04/02/20 15:57: BUN 28 H, Creatinine 1.50 H 04/03/20 04:26: BUN 26 H, Creatinine 1.21 H, Triglycerides 151 H 04/03/20 04:26: RBC 3.95 L, Hgb 11.4 L, Hct 34.4 L, RDW 14.9 H, Monocytes % 10.9 H, Monocytes # 0.8 H - Physical Exam Vitals: Vital Signs (12 hours) Temp Pulse Resp BP BP Pulse Ox 04/03/20 14:02 98.5 F 85 17 169/79 H 96 04/03/20 08:59 98.1 F 63 18 144/67 H 99 04/03/20 03:34 97.8 F 69 17 125/59 L 99 Weight Weight 172 lb Physical Exam: The patient was seen and examined on the day of discharge. Stress test this morning. No acute events noted overnight. Denies any chest pain currently. Plan - Discharge Medications Prescriptions: Atorvastatin Calcium [Lipitor] 40 mg PO HS 30 Days #30 tab Home Medications: Medication Instructions Recorded Confirmed Type Hyoscyamine Sulfate [Levsin] 0.125 mg PO QID 10/05/12 04/03/20 History Levothyroxine Sodium [Synthroid] 100 mcg PO DAILY 10/05/12 04/03/20 History Metoprolol Succinate [Toprol XL] 50 mg PO BID 10/05/12 04/03/20 History Olmesartan Medoxomil [Benicar] 20 mg PO HS 10/05/12 04/03/20 History Cholecalciferol (Vitamin D3) 5,000 unit PO DAILY 08/05/16 04/03/20 History [Vitamin D3] Clonidine HCl 1 tablet PO PRN PRN 08/05/16 04/03/20 History Liothyronine Sodium 0.5 tab PO 1200 08/05/16 04/03/20 History Cyclobenzaprine [Flexeril] 10 mg PO TID PRN 06/03/18 04/03/20 History Esomeprazole Magnesium [Nexium] 20 mg PO BID 06/03/18 04/03/20 History Fenofibrate 160 mg PO DAILY 06/03/18 04/03/20 History Hypochlorous Acid/Sodium Chlor 2 spray TP TID 06/03/18 04/03/20 History [Avenova Lid-Lash [place]] Ondansetron [Zofran ODT] 4 mg PO Q8HR 06/03/18 04/03/20 History Atorvastatin Calcium [Lipitor] 40 mg PO HS 30 Days #30 tab 04/03/20 Rx Budesonide-Formoterol [Symbicort 1 puff INH BID PRN 04/03/20 04/03/20 History 160-4.5] Celecoxib [Celebrex] 200 mg PO DAILY 04/03/20 04/03/20 History Dexlansoprazole [Dexilant] 60 mg PO DAILY 04/03/20 04/03/20 History Diltiazem HCl [Diltiazem 12Hr ER] 120 mg PO HS 04/03/20 04/03/20 History Folic Acid 1 mg PO DAILY 04/03/20 04/03/20 History Ipratropium/Albuterol Sulfate 3 ml NEB Q6H PRN 04/03/20 04/03/20 History [DuoNeb] Methotrexate Sodium 25 mg PO Q7D 04/03/20 04/03/20 History Multivitamin 1 each PO DAILY 04/03/20 04/03/20 History Tiotropium [place] [Spiriva 2 inh IH DAILY PRN 04/03/20 04/03/20 History Respimat] hydrOXYzine HCl [hydrOZYzine HCl] 20 mg PO HS 04/03/20 04/03/20 History metFORMIN [Glucophage] 500 mg PO QAM-WM 04/03/20 04/03/20 History Allergies: Iodine and Iodide Containing Produc Allergy (Severe, Verified 07/09/19 07:16) Anaphylaxis amoxicillin [From Augmentin] Allergy (Verified 04/02/20 19:48) GI upset aspirin Allergy (Verified 04/02/20 19:48) Hives clavulanic acid [From Augmentin] Allergy (Verified 04/02/20 19:48) chest tightness high BP corn Allergy (Verified 04/02/20 19:48) Hives diclofenac Allergy (Verified 04/02/20 19:48) Tightness in chest high BP Latex, Natural Rubber Allergy (Verified 04/02/20 19:48) Rash "blisters" shellfish derived Allergy (Verified 04/02/20 19:48) sulfamethoxazole [From Bactrim] Allergy (Verified 04/02/20 19:48) "raises blood pressure" topiramate [From Topamax] Allergy (Verified 04/02/20 19:48) Headache "headache and tremors" trimethoprim [From Bactrim] Allergy (Verified 04/02/20 19:48) zonisamide [From Zonegran] Allergy (Verified 04/02/20 19:48) Headache "headache and tremors" IVP DYE Allergy (Uncoded 07/09/19 07:16) Anaphylaxis - Discharge Instructions Activity:: Activity as Tolerated Nourishment:: Heart Healthy Diet - Follow up Plan Referrals: Maxx Padilla MD [Primary Care Provider] - Disposition: HOME Quality - Care Measures CORE MEASURES:: N/A
--- NOTE | 2020-04-03 15:01 | PDOC.HOSPP ---
- Subjective Encounter Date: 04/03/20 Encounter Time: 02:30 Subjective: Patient resting, came back from the stress test. Posture at bedside. Followed with Dr. Harrison as an outpatient. - Objective Vital Signs & Weight: Vital Signs (12 hours) Temp Pulse Resp BP BP Pulse Ox 04/03/20 14:02 98.5 F 85 17 169/79 H 96 04/03/20 08:59 98.1 F 63 18 144/67 H 99 04/03/20 03:34 97.8 F 69 17 125/59 L 99 Weight Weight 172 lb I&O: 04/02/20 04/03/20 04/04/20 06:59 06:59 06:59 Intake Total 400 Balance 400 Result Diagrams: 04/03/20 04:26 04/03/20 04:26 Additional Labs: Accuchecks 04/03/20 05:47 POC Glucose 94 Hospitalist ROS - Medication Medications: Active Medications Generic Name Dose Route Start Last Admin Trade Name Freq PRN Reason Stop Dose Admin Sodium Chloride 1,000 mls @ 75 mls/hr 04/02/20 23:59 04/02/20 23:09 Normal Saline 0.9% IV 1,000 mls .[id number] RADHA Administration Nitroglycerin 0.5 inch 04/02/20 22:00 04/03/20 14:15 Nitroglycerin 2% Ointment 1 Inch/1 Gm Packet TOP 0.5 inch Q8HR RADHA Administration Pantoprazole Sodium 40 mg 04/03/20 09:00 04/03/20 09:08 Pantoprazole 40 Mg Tab PO Not Given DAILY RADHA - Exam General Appearance: NAD, awake alert Eye: PERRL ENT: normocephalic atraumatic Neck: supple Heart: RRR, normal peripheral pulses Respiratory: CTAB, normal chest expansion Gastrointestinal: soft, normal bowel sounds Psychiatric: normal affect, normal behavior, A&O x 3 Hosp A/P - Plan 74/F with PMH HTN, DM 2, asthma presents for chest pain. Admit to telemetry floor, observation status. Expected length of stay less than 2 midnights. Presented hypertensive, NL HR, RR, SPO2, afebrile. EKG normal sinus rhythm, T wave inversions in the lateral leads, no change from previous comparison. CXR no acute process. Troponins 0.026, 0.026 BUN 28, creatinine 1.50, GFR 34 Orthostatic vitals negative Carotid Doppler no significant stenosis Stress test negative #Uncontrolled hypertension Restart home dose metoprolol and Cardizem. -Patient is advised to take the medications regularly and have blood pressure readings and follow with the primary care physician. She is on diltiazem at 120 mg daily as well as Toprol-XL 50 mg twice a day. Her latest blood pressure readings where 143 and 125 systolic. So did not add any new medications at the time of discharge. #SUSHIL -Resolved with hydration #DM2 Chronic, well controlled. Takes metformin at home. Hold metformin. Start moderate ISS. Accu-Cheks AC at bedtime. #HTN Restart home dose metoprolol and diltiazem. #HLD -LDL is or around 100 started her on Lipitor . 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 --TSh in the normal range Plan for discharge today Patient states that she had a chest pain during the time a stress test and still she has some mild discomfort mostly chest tightness. She would like to see Dr. Harrison. Consult placed for him.
[2020-04-03] MEDS: Sodium Chloride 0.9% 1,000 ML IV SCH (16:49)
[2020-04-03 16:57] VITALS: BP 147/67
--- NOTE | 2020-04-03 17:46 | CON ---
DATE OF CONSULTATION: 04/03/2020 REASON FOR CONSULTATION: Chest pain. HISTORY OF PRESENT ILLNESS: Ms. Eisenberg is a pleasant 74-year-old woman with past medical history of hypertension, who recently presented with chest pain. The pain can last for hours. It occurs mainly at rest. It intermittently can be associated with exertion. She has undergone a noninvasive stress study performed x2 in the last two years, both negative for ischemia with a normal LVEF. She also has complained of significant increase in blood pressure. Blood pressure at home has been in the 180s to 170s. Blood pressure here has been better in the 120s to 160s. PAST MEDICAL HISTORY: Hyperlipidemia, hypertension, hypothyroidism, and osteoarthritis. HOME MEDICATIONS: Include 1. Fenofibrate. 2. Magnesium. 3. Zinc. 4. Selenium. 5. Tramadol. 6. Benicar. 7. Synthroid. 8. Clonidine. 9. Metoprolol. 10. Hydrochlorothiazide. 11. Methotrexate. 12. Folic acid. 13. DHEA. 14. Restasis. 15. Nexium. 16. Zyrtec. SURGICAL HISTORY: Carpal tunnel release, , eye implant. SOCIAL HISTORY: No current tobacco or alcohol use. ALLERGIES: IODINE. REVIEW OF SYSTEMS: A 10-point review of systems is reviewed and as above, otherwise negative. PHYSICAL EXAMINATION: GENERAL: Patient is a pleasant woman, who is in no acute distress. The patient appears their stated age. VITAL SIGNS: Blood pressure 147/67, pulse 81, temperature 98.5. NEUROLOGIC: The patient is alert and oriented x3 with no focal neurologic deficits. HEENT: Sclerae without icterus. Mouth has moist mucous membranes with normal pallor. NECK: No JVD. Carotid upstroke brisk. No bruits bilaterally. LUNGS: Clear to auscultation with unlabored respirations. BACK: No scoliosis or kyphosis. CARDIAC: Regular rate and rhythm with normal S1 and S2. No S3 or S4 noted. No significant rubs, murmurs, thrills, or gallops noted throughout the precordium. PMI is not displaced. There is no parasternal heave. ABDOMEN: Soft, nontender, nondistended. No peritoneal signs present. No hepatosplenomegaly. No abnormal striae. EXTREMITIES: 2+ femoral and 2+ dorsalis pedis pulses. No cyanosis, clubbing, or edema. SKIN: No gross abnormalities. PERTINENT LABORATORY DATA: Hemoglobin 11.4. Creatinine 1.2 with a GFR of 43. Stress-rest myocardial perfusion study, LVEF 76% with normal perfusion. Echo Doppler shows LVEF 55% to 60% with diastolic dysfunction. IMPRESSION: 1. Atypical chest pain. 2. Hypertension. 3. Hypothyroidism. 4. Hyperlipidemia. RECOMMENDATIONS: Ms. Eisenberg's symptoms are not felt to be typical for angina. Her stress study was negative for ischemia. Reassurance was provided. We would recommend aggressive blood pressure management. Continue workup as an outpatient. We would discontinue nitroglycerin paste and recommend adding amlodipine 5 mg q.p.m. Continue atorvastatin as prescribed. Okay from my standpoint to discharge home with close outpatient followup. Job ID: [id number]
--- NOTE | 2020-04-03 20:02 | PDOC.DS.DS ---
Provider - Provider Date of Admission: 04/02/20 17:48 Admitting Provider: Landon Hernandez DO Primary Care Physician: Maxx Padilla MD Course - Hospital Course Hospital Course: 74/F with PMH HTN, DM 2, asthma presents for chest pain. Admit to telemetry floor, observation status. Expected length of stay less than 2 midnights. Presented hypertensive, NL HR, RR, SPO2, afebrile. EKG normal sinus rhythm, T wave inversions in the lateral leads, no change from previous comparison. CXR no acute process. Troponins 0.026, 0.026 BUN 28, creatinine 1.50, GFR 34 Orthostatic vitals negative Carotid Doppler no significant stenosis Stress test negative #Uncontrolled hypertension Restart home dose metoprolol and Cardizem. -Patient is advised to take the medications regularly and have blood pressure readings and follow with the primary care physician. She is on diltiazem at 120 mg daily as well as Toprol-XL 50 mg twice a day. Her latest blood pressure readings where 143 and 125 systolic. So did not add any new medications at the time of discharge. #SUSHIL -Resolved with hydration #DM2 Chronic, well controlled. Takes metformin at home. Hold metformin. Start moderate ISS. Accu-Cheks AC at bedtime. #HTN Restart home dose metoprolol and diltiazem. #HLD -LDL is or around 100 started her on Lipitor . 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 --TSh in the normal range Discharged to home in stable condition. Resuscitation Status: 04/02/20 21:20 Resuscitation Status Routine Co-Sign Provider: Resuscitation Status: FULL: Full Resuscitation Discussed with: patient - Labs Lab Results: 04/03/20 04:26 04/03/20 04:26 Abnormal Lab Results - Last 48 hrs 04/02/20 15:57: RDW 15.0 H, MPV 7.2 L, Basophils % 1.3 H, Monocytes # 0.9 H 04/02/20 15:57: BUN 28 H, Creatinine 1.50 H 04/03/20 04:26: BUN 26 H, Creatinine 1.21 H, Triglycerides 151 H 04/03/20 04:26: RBC 3.95 L, Hgb 11.4 L, Hct 34.4 L, RDW 14.9 H, Monocytes % 10.9 H, Monocytes # 0.8 H - Physical Exam Vitals: Vital Signs (12 hours) Temp Pulse Resp BP BP Pulse Ox 04/03/20 16:56 98.5 F 18 L 17 147/67 H 99 04/03/20 14:02 98.5 F 85 17 169/79 H 96 04/03/20 08:59 98.1 F 63 18 144/67 H 99 Weight Weight 172 lb Physical Exam: The patient was seen and examined on the day of discharge. Plan - Discharge Medications Prescriptions: Atorvastatin Calcium [Lipitor] 40 mg PO HS 30 Days #30 tab Home Medications: Medication Instructions Recorded Confirmed Type Hyoscyamine Sulfate [Levsin] 0.125 mg PO QID 10/05/12 04/03/20 History Levothyroxine Sodium [Synthroid] 100 mcg PO DAILY 10/05/12 04/03/20 History Metoprolol Succinate [Toprol XL] 50 mg PO BID 10/05/12 04/03/20 History Olmesartan Medoxomil [Benicar] 20 mg PO HS 10/05/12 04/03/20 History Cholecalciferol (Vitamin D3) 5,000 unit PO DAILY 08/05/16 04/03/20 History [Vitamin D3] Clonidine HCl 1 tablet PO PRN PRN 08/05/16 04/03/20 History Liothyronine Sodium 0.5 tab PO 1200 08/05/16 04/03/20 History Cyclobenzaprine [Flexeril] 10 mg PO TID PRN 06/03/18 04/03/20 History Esomeprazole Magnesium [Nexium] 20 mg PO BID 06/03/18 04/03/20 History Fenofibrate 160 mg PO DAILY 06/03/18 04/03/20 History Hypochlorous Acid/Sodium Chlor 2 spray TP TID 06/03/18 04/03/20 History [Avenova Lid-Lash [place]] Ondansetron [Zofran ODT] 4 mg PO Q8HR 06/03/18 04/03/20 History Atorvastatin Calcium [Lipitor] 40 mg PO HS 30 Days #30 tab 04/03/20 Rx Budesonide-Formoterol [Symbicort 1 puff INH BID PRN 04/03/20 04/03/20 History 160-4.5] Celecoxib [Celebrex] 200 mg PO DAILY 04/03/20 04/03/20 History Dexlansoprazole [Dexilant] 60 mg PO DAILY 04/03/20 04/03/20 History Diltiazem HCl [Diltiazem 12Hr ER] 120 mg PO HS 04/03/20 04/03/20 History Folic Acid 1 mg PO DAILY 04/03/20 04/03/20 History Ipratropium/Albuterol Sulfate 3 ml NEB Q6H PRN 04/03/20 04/03/20 History [DuoNeb] Methotrexate Sodium 25 mg PO Q7D 04/03/20 04/03/20 History Multivitamin 1 each PO DAILY 04/03/20 04/03/20 History Tiotropium [place] [Spiriva 2 inh IH DAILY PRN 04/03/20 04/03/20 History Respimat] hydrOXYzine HCl [hydrOZYzine HCl] 20 mg PO HS 04/03/20 04/03/20 History metFORMIN [Glucophage] 500 mg PO QAM-WM 04/03/20 04/03/20 History Allergies: Iodine and Iodide Containing Produc Allergy (Severe, Verified 07/09/19 07:16) Anaphylaxis amoxicillin [From Augmentin] Allergy (Verified 04/02/20 19:48) GI upset aspirin Allergy (Verified 04/02/20 19:48) Hives clavulanic acid [From Augmentin] Allergy (Verified 04/02/20 19:48) chest tightness high BP corn Allergy (Verified 04/02/20 19:48) Hives diclofenac Allergy (Verified 04/02/20 19:48) Tightness in chest high BP Latex, Natural Rubber Allergy (Verified 04/02/20 19:48) Rash "blisters" shellfish derived Allergy (Verified 04/02/20 19:48) sulfamethoxazole [From Bactrim] Allergy (Verified 04/02/20 19:48) "raises blood pressure" topiramate [From Topamax] Allergy (Verified 04/02/20 19:48) Headache "headache and tremors" trimethoprim [From Bactrim] Allergy (Verified 04/02/20 19:48) zonisamide [From Zonegran] Allergy (Verified 04/02/20 19:48) Headache "headache and tremors" IVP DYE Allergy (Uncoded 07/09/19 07:16) Anaphylaxis - Discharge Instructions Activity:: Activity as Tolerated Nourishment:: Heart Healthy Diet - Follow up Plan Referrals: Juan Pablo Harrison MD [Active] - () Maxx Padilla MD [Primary Care Provider] - 7 Days (Please call the office and scedule an appointment within 7 days.) Disposition: HOME Quality - Care Measures CORE MEASURES:: N/A
[2020-04-03] MEDS ORDERED: Atorvastatin Calcium 40 MG TAB PO SCH (21:00)
== END 2020-04-03 18:50 | disposition home or self-care (01) ==
LOC: ERS 14:45 → 2NO 17:48
PROVIDERS: ADMIT Family Medicine; ATTEND Internal Medicine
DX: R07.89 Other chest pain (principal); I10 Essential (primary) hypertension; E78.5 Hyperlipidemia, unspecified; E11.9 Type 2 diabetes mellitus without complications; I49.9 Cardiac arrhythmia, unspecified; E03.8 Other specified hypothyroidism; E06.3 Autoimmune thyroiditis; J45.909 Unspecified asthma, uncomplicated; K21.9 Gastro-esophageal reflux disease without esophagitis; N17.9 Acute kidney failure, unspecified; M19.90 Unspecified osteoarthritis, unspecified site; Z79.84 Long term (current) use of oral hypoglycemic drugs; Z79.899 Other long term (current) drug therapy; Z88.0 Allergy status to penicillin; Z88.1 Allergy status to other antibiotic agents; Z88.6 Allergy status to analgesic agent; Z88.8 Allergy status to other drugs, medicaments and biological substances; Z91.013 Allergy to seafood; Z91.018 Allergy to other foods; Z91.040 Latex allergy status; Z91.041 Radiographic dye allergy status; Z20.828 Contact with and (suspected) exposure to other viral communicable diseases
CPT/HCPCS: 71045; 78452; 80048; 80053; 80061; 82962; 83690; 83735; 83880; 84443; 84484 ×2; 85025 ×2; 90662; 90732; 93005; 93017; 93306; 93880; 94760 ×2; 99285; A9500; G0008; G0009; U0003; 36415; 36416; 87635; 90471; G0378; J2785

== ENCOUNTER 2020-12-24 10:26 | Outpatient (CLI) | payer MEDICARE, OTHER | END 2020-12-24 10:27 | disposition home or self-care (01) | LOC: TBSIIMAG 10:26 | PROVIDERS: ATTEND Neurological Surgery | DX: M75.111 Incomplete rotator cuff tear or rupture of right shoulder, not specified as traumatic (principal); M47.22 Other spondylosis with radiculopathy, cervical region; M50.10 Cervical disc disorder with radiculopathy, unspecified cervical region | CPT/HCPCS: 72040; 72141 ==

== ENCOUNTER 2021-09-27 10:09 | Inpatient (IN) | payer MEDICARE, OTHER ==
[2021-09-27 10:28] LABS: Actual Bicarbonate (HCO3v) 19 mEq/L (22-28); Analyzer IN Cardio ER; Base Excess -5.6 mEq/L (-2.0 to +3.0); Calcium, Ionized (venous) 1.05 mmol/L (1.16-1.32); Chloride (VBG) 107 mmol/L (98-106); Hemoglobin (Hb) 13.4 g/dL (11.7-16.1); Potassium (VBG) 4.24 mmol/L (3.70-5.30); Sodium 138.2 mmol/L (133-146); pH (venous) 7.35 (7.32-7.43)
[2021-09-27] MEDS ORDERED: Calcium Chloride 1 GM/10 ML Abboject SYRINGE ONE (10:30)
[2021-09-27] MEDS ORDERED: EPINEPHrine 1 MG/10 ML Abboject SYRINGE ONE (10:30)
[2021-09-27] MEDS ORDERED: Atropine Sulfate 1 mg/10 ml Syringe ONE (10:30)
[2021-09-27] MEDS ORDERED: Lidocaine 1% (PF) 30 ML VIAL ONE (10:32)
[2021-09-27 10:36] LABS: #Basophils 0.1 thou/uL (0.0-0.2); #Eosinphils 0.6 thou/uL (0.0-0.7); #Lymphocytes 3.1 thou/uL (1.20-3.40); #Monocytes 0.9 thou/uL (0.11-0.59); #Neutrophils 8.1 thou/uL (1.40-6.50); %Basophils 0.8 % (0.0-1.0); %Eosinophils 4.5 % (0.0-10.0); %Lymphocytes 24.1 % (21.0-51.0); %Monocytes 7.1 % (0.0-10.0); %Neutrophils 63.5 % (42.0-75.0); Hemoglobin 12.5 g/dL (12.0-16.0); Mean Corpuscular HGB CONC 31.4 g/dL (32.0-36.0); Mean Corpuscular Volume 85.9 fL (78.0-98.0); Mean Platelet Volume 7.2 fL (7.4-10.4); Platelet Count 329 thou/uL (130-400); RBC Distribution Width 14.5 % (11.5-14.5); Red Blood Cell (RBC) Count 4.64 mill/uL (4.20-5.40); White Blood Cell (WBC) Count 12.7 thou/uL (4.8-10.8)
[2021-09-27 11:09] LABS: ALT (SGPT) 26 U/L (8-55); AST (SGOT) 34 U/L (5-34); Albumin 3.6 g/dL (3.4-4.8); Alkaline Phosphatase 61 U/L (40-110); Anion Gap 18 mmol/L (10-20); BUN (Urea Nitrogen) 29 mg/dL (9.8-20.1); Bilirubin, Total 0.4 mg/dL (0.2-1.2); CK (CPK) 57 U/L (29-168); Calc. Creatinine Clearance 0 mL/min (70-130); Calcium 9.4 mg/dL (7.8-10.44); Carbon Dioxide 19 mmol/L (23-31); Chloride 109 mmol/L (98-107); Glucose 179 mg/dL (83-110); Potassium 4.6 mmol/L (3.5-5.1); Protein, Total 6.6 g/dL (5.8-8.1); Sodium 141 mmol/L (136-145)
[2021-09-27 11:19] LABS: CKMB 1.1 ng/mL (0-6.6)
[2021-09-27] MEDS ORDERED: Sodium Chloride 0.9% 200 ML IV PRN (11:30)
[2021-09-27] MEDS ORDERED: Bisacodyl 5 MG TAB PO PRN (18:07)
[2021-09-27] MEDS ORDERED: Ondansetron PF 4 MG/2 ML Vial IVP PRN (18:07)
[2021-09-27] MEDS ORDERED: HumaLOG 300 UNITS/3 ML VIAL SC PRN (18:19)
[2021-09-27] MEDS ORDERED: Ipratropium Bromide 2.5 ml Neb NEB PRN (18:41)
[2021-09-27] MEDS: Acetaminophen/Codeine 30-300mg Tablet PO PRN (20:23)
[2021-09-27] MEDS: Atorvastatin Calcium 40 MG TAB PO SCH (20:24)
[2021-09-27 20:59] LABS: CKMB 1.1 ng/mL (0-6.6)
[2021-09-27] MEDS: Losartan 25 MG TAB PO SCH (21:49)
[2021-09-27] MEDS: Metoprolol Tartrate 50 MG TAB PO SCH (21:49)
[2021-09-28 03:39] LABS: #Basophils 0.1 thou/uL (0.0-0.2); #Eosinphils 0.6 thou/uL (0.0-0.7); #Lymphocytes 2.4 thou/uL (1.20-3.40); #Neutrophils 8.9 thou/uL (1.40-6.50); %Basophils 0.8 % (0.0-1.0); %Lymphocytes 18.3 % (21.0-51.0); %Monocytes 7.4 % (0.0-10.0); %Neutrophils 68.5 % (42.0-75.0); Hemoglobin 12.3 g/dL (12.0-16.0); Mean Corpuscular HGB CONC 31.7 g/dL (32.0-36.0); Mean Corpuscular Hemoglobin 27.1 pg (27.0-31.0); Mean Corpuscular Volume 85.4 fL (78.0-98.0); Mean Platelet Volume 7.2 fL (7.4-10.4); Platelet Count 232 thou/uL (130-400); RBC Distribution Width 14.6 % (11.5-14.5); Red Blood Cell (RBC) Count 4.54 mill/uL (4.20-5.40); White Blood Cell (WBC) Count 12.9 thou/uL (4.8-10.8)
[2021-09-28 04:00] LABS: Anion Gap 13 mmol/L (10-20); BUN (Urea Nitrogen) 30 mg/dL (9.8-20.1); Calc. Creatinine Clearance 42 mL/min (70-130); Carbon Dioxide 23 mmol/L (23-31); Chloride 107 mmol/L (98-107); Glucose 97 mg/dL (83-110); Potassium 4.1 mmol/L (3.5-5.1); Sodium 139 mmol/L (136-145)
[2021-09-28 04:15] LABS: CKMB 0.9 ng/mL (0-6.6)
[2021-09-28] MEDS: Mometasone 200 MCG/Formoterol 5 MCG 120 PUFF INHALER INH SCH ×2 (08:17→19:05)
[2021-09-28] MEDS: Metoprolol Tartrate 50 MG TAB PO SCH (08:57)
[2021-09-28] MEDS ORDERED: Enoxaparin Sodium 40 MG/0.4 ML SYRINGE SC SCH (09:00)
[2021-09-28] MEDS: Folic Acid 1 MG TAB PO SCH (09:39)
[2021-09-28] MEDS: Multivit, Therapeutic 1 TAB PO SCH (09:39)
[2021-09-28] MEDS: Fenofibrate Nanocrystallized 145 MG TAB PO SCH (09:39)
[2021-09-28 10:03] LABS: SARS-CoV-2 NAA Rapid Test Not Detected (NotDetected)
[2021-09-28] MEDS ORDERED: Liothyronine Sodium 5 MCG TAB PO SCH ×2 (10:30→12:00)
[2021-09-28] MEDS: Liothyronine Sodium 5 MCG TAB PO SCH (12:42)
[2021-09-28] MEDS ORDERED: Communication Order-Pharmacy FS SCH (17:45)
[2021-09-28] MEDS: Sodium Chloride 0.9% 1,000 ML IV SCH (18:21)
[2021-09-28] MEDS: diphenhydrAMINE 25 MG CAP PO SCH ×2 (18:50→23:14)
[2021-09-28] MEDS: predniSONE 20 MG TAB PO SCH ×2 (18:50→23:14)
[2021-09-28] MEDS: Atorvastatin Calcium 40 MG TAB PO SCH (20:44)
[2021-09-28] MEDS: Montelukast Sodium 10 mg Tablet PO SCH (20:44)
[2021-09-28] MEDS: Losartan 25 MG TAB PO SCH (20:44)
[2021-09-28] MEDS ORDERED: Famotidine 20 MG TAB PO SCH (21:00)
[2021-09-28] MEDS ORDERED: Guaifenesin DM 100-10/5 ML UDCUP PO PRN (21:30)
[2021-09-28] MEDS ORDERED: hydrALAZINE 20 MG/ML VIAL SLOW IVP PRN ×2 (22:18→22:57)
[2021-09-29] MEDS: Cyclobenzaprine 10 MG TAB PO PRN ×2 (00:42→16:10)
[2021-09-29 04:07] LABS: #Eosinphils 0.2 thou/uL (0.0-0.7); #Lymphocytes 0.8 thou/uL (1.20-3.40); #Monocytes 0.1 thou/uL (0.11-0.59); %Basophils 0.2 % (0.0-1.0); %Eosinophils 1.3 % (0.0-10.0); %Lymphocytes 6.4 % (21.0-51.0); %Neutrophils 91.2 % (42.0-75.0); Hemoglobin 13.1 g/dL (12.0-16.0); Mean Corpuscular HGB CONC 32.6 g/dL (32.0-36.0); Mean Corpuscular Hemoglobin 27.5 pg (27.0-31.0); Mean Corpuscular Volume 84.3 fL (78.0-98.0); Mean Platelet Volume 7.6 fL (7.4-10.4); Platelet Count 235 thou/uL (130-400); RBC Distribution Width 14.3 % (11.5-14.5); Red Blood Cell (RBC) Count 4.78 mill/uL (4.20-5.40)
[2021-09-29 04:34] LABS: Anion Gap 12 mmol/L (10-20); BUN (Urea Nitrogen) 21 mg/dL (9.8-20.1); Calc. Creatinine Clearance 53 mL/min (70-130); Calcium 9.3 mg/dL (7.8-10.44); Carbon Dioxide 25 mmol/L (23-31); Chloride 106 mmol/L (98-107); Glucose 169 mg/dL (83-110); Sodium 139 mmol/L (136-145)
[2021-09-29] MEDS: diphenhydrAMINE 25 MG CAP PO SCH ×2 (05:18→11:38)
[2021-09-29] MEDS: predniSONE 20 MG TAB PO SCH ×2 (05:18→11:38)
[2021-09-29] MEDS ORDERED: Lidocaine 1% (PF) 30 ML VIAL ONE (06:37)
[2021-09-29] MEDS: Sodium Chloride 0.9% 1,000 ML IV SCH ×2 (06:50→09:38)
[2021-09-29] MEDS ORDERED: Verapamil 5 MG/2 ML VIAL ONE (07:06)
[2021-09-29] MEDS ORDERED: Nitroglycerin 100MG/250ML BOT 250 ML ONE (07:07)
[2021-09-29] MEDS ORDERED: Heparin 10,000 UNITS/ 10 ML VIAL ONE (07:07)
[2021-09-29] MEDS ORDERED: EPINEPHrine 1 MG/ML AMP ONE (07:28)
[2021-09-29] MEDS ORDERED: hydrALAZINE 20 MG/ML VIAL ONE (07:53)
[2021-09-29] MEDS: Mometasone 200 MCG/Formoterol 5 MCG 120 PUFF INHALER INH SCH ×2 (07:58→19:35)
[2021-09-29] MEDS ORDERED: Hydrocortisone Sod Succ/PF 100 mg/2 ml Vial ONE (08:16)
[2021-09-29] MEDS ORDERED: diphenhydrAMINE 50 MG/ML VIAL ONE (08:25)
[2021-09-29] MEDS ORDERED: Ondansetron PF 4 MG/2 ML Vial ONE (08:26)
[2021-09-29] MEDS ORDERED: Clopidogrel Bisulfate 300 MG TAB ONE ×2 (08:33→08:38)
[2021-09-29] MEDS ORDERED: Midazolam HCl 2 mg/2 ml Vial ONE (08:38)
[2021-09-29] MEDS ORDERED: Fentanyl 100 MCG/2 ML VIAL ONE (08:39)
[2021-09-29] MEDS ORDERED: Sodium Chloride 0.9% 1,000 ML IV SCH (08:45)
[2021-09-29] MEDS ORDERED: Iopamidol 370 76% 100 ML VIAL ONE (09:19)
[2021-09-29] MEDS: Folic Acid 1 MG TAB PO SCH (09:36)
[2021-09-29] MEDS: Multivit, Therapeutic 1 TAB PO SCH (09:36)
[2021-09-29] MEDS: Liothyronine Sodium 5 MCG TAB PO SCH (09:37)
[2021-09-29] MEDS ORDERED: Hydrocortisone Sod Succ/PF 100 mg/2 ml Vial IVP SCH (10:00)
[2021-09-29] MEDS: Fenofibrate Nanocrystallized 145 MG TAB PO SCH (10:11)
[2021-09-29] MEDS: Acetaminophen/Codeine 30-300mg Tablet PO PRN (10:27)
[2021-09-29] MEDS: Acetaminophen 325 MG TAB PO PRN (10:29)
[2021-09-29 11:44] LABS: CKMB 1.8 ng/mL (0-6.6)
[2021-09-29] MEDS ORDERED: Nitroglycerin 0.4 MG TAB (25 Tab Bottle) SL SCH (11:45)
[2021-09-29 17:05] LABS: CKMB 11.2 ng/mL (0-6.6)
[2021-09-29] MEDS: Losartan 25 MG TAB PO SCH (20:10)
[2021-09-29] MEDS: Montelukast Sodium 10 mg Tablet PO SCH (20:10)
[2021-09-29] MEDS: Atorvastatin Calcium 40 MG TAB PO SCH (20:10)
[2021-09-30 03:53] LABS: #Lymphocytes 1.4 thou/uL (1.20-3.40); %Eosinophils 0.2 % (0.0-10.0); %Lymphocytes 7.3 % (21.0-51.0); %Monocytes 5.2 % (0.0-10.0); %Neutrophils 87.2 % (42.0-75.0); Hemoglobin 11.4 g/dL (12.0-16.0); Mean Corpuscular Volume 84.4 fL (78.0-98.0); Mean Platelet Volume 6.8 fL (7.4-10.4); Platelet Count 225 thou/uL (130-400); RBC Distribution Width 14.4 % (11.5-14.5); Red Blood Cell (RBC) Count 4.21 mill/uL (4.20-5.40); White Blood Cell (WBC) Count 19.5 thou/uL (4.8-10.8)
[2021-09-30 04:18] LABS: ALT (SGPT) 20 U/L (8-55); AST (SGOT) 32 U/L (5-34); Albumin 3.1 g/dL (3.4-4.8); Alkaline Phosphatase 40 U/L (40-110); Anion Gap 9 mmol/L (10-20); BUN (Urea Nitrogen) 21 mg/dL (9.8-20.1); Bilirubin, Total 0.4 mg/dL (0.2-1.2); Calc. Creatinine Clearance 56 mL/min (70-130); Calcium 8.5 mg/dL (7.8-10.44); Carbon Dioxide 26 mmol/L (23-31); Chloride 107 mmol/L (98-107); Globulin 2.9 g/dL (2.4-3.5); Glucose 122 mg/dL (83-110); Potassium 4.2 mmol/L (3.5-5.1); Sodium 138 mmol/L (136-145)
[2021-09-30] MEDS: Acetaminophen/Codeine 30-300mg Tablet PO PRN ×2 (04:35→10:02)
[2021-09-30 04:38] VITALS: BMI 34.4
[2021-09-30] MEDS: Mometasone 200 MCG/Formoterol 5 MCG 120 PUFF INHALER INH SCH ×2 (07:42→18:36)
[2021-09-30] MEDS ORDERED: Loratadine 5 MG/5 ML UDCUP PO PRN (09:07)
[2021-09-30] MEDS: Folic Acid 1 MG TAB PO SCH (09:57)
[2021-09-30] MEDS: Liothyronine Sodium 5 MCG TAB PO SCH (09:57)
[2021-09-30] MEDS: Multivit, Therapeutic 1 TAB PO SCH (09:57)
[2021-09-30] MEDS: Loratadine 10 MG TAB PO PRN (09:58)
[2021-09-30] MEDS: Fenofibrate Nanocrystallized 145 MG TAB PO SCH (10:02)
[2021-09-30] MEDS: Acetaminophen 325 MG TAB PO PRN (10:04)
[2021-09-30] MEDS ORDERED: diphenhydrAMINE 50 MG/ML VIAL IVP PRN (12:11)
[2021-09-30] MEDS ORDERED: Aspirin Chewable 81 MG TAB PO SCH ×2 (12:30→13:30)
[2021-09-30] MEDS: Aspirin Chewable 81 MG TAB PO SCH ×2 (14:30→17:35)
[2021-09-30] MEDS ORDERED: Clopidogrel Bisulfate 75 MG TAB PO SCH (18:00)
[2021-09-30] MEDS: Montelukast Sodium 10 mg Tablet PO SCH (21:35)
[2021-09-30] MEDS: Losartan 25 MG TAB PO SCH (21:36)
[2021-09-30] MEDS: Atorvastatin Calcium 40 MG TAB PO SCH (21:36)
[2021-10-01] MEDS ORDERED: diphenhydrAMINE 50 MG/ML VIAL IVP SCH (04:30)
[2021-10-01] MEDS: Mometasone 200 MCG/Formoterol 5 MCG 120 PUFF INHALER INH SCH ×2 (07:38→19:03)
[2021-10-01] MEDS ORDERED: Aspirin 81 mg Enteric Coated Tablet PO SCH (09:00)
[2021-10-01] MEDS: Apixaban 5 MG TAB PO SCH ×2 (09:07→21:35)
[2021-10-01] MEDS: Multivit, Therapeutic 1 TAB PO SCH (09:07)
[2021-10-01] MEDS: Liothyronine Sodium 5 MCG TAB PO SCH (09:07)
[2021-10-01] MEDS: Folic Acid 1 MG TAB PO SCH (09:07)
[2021-10-01] MEDS: Fenofibrate Nanocrystallized 145 MG TAB PO SCH (09:07)
[2021-10-01] MEDS: Clopidogrel Bisulfate 75 MG TAB PO SCH (09:07)
[2021-10-01] MEDS: Cyclobenzaprine 10 MG TAB PO PRN (09:07)
[2021-10-01] MEDS: Montelukast Sodium 10 mg Tablet PO SCH (21:35)
[2021-10-01] MEDS: Atorvastatin Calcium 40 MG TAB PO SCH (21:35)
[2021-10-01] MEDS: Losartan 25 MG TAB PO SCH (21:35)
[2021-10-01] MEDS: Acetaminophen/Codeine 30-300mg Tablet PO PRN (21:40)
[2021-10-02] MEDS: Mometasone 200 MCG/Formoterol 5 MCG 120 PUFF INHALER INH SCH ×2 (07:09→19:28)
[2021-10-02] MEDS: Fenofibrate Nanocrystallized 145 MG TAB PO SCH (09:32)
[2021-10-02] MEDS: Liothyronine Sodium 5 MCG TAB PO SCH (09:32)
[2021-10-02] MEDS: Folic Acid 1 MG TAB PO SCH (09:33)
[2021-10-02] MEDS: Clopidogrel Bisulfate 75 MG TAB PO SCH (09:33)
[2021-10-02] MEDS: Apixaban 5 MG TAB PO SCH ×2 (09:33→20:21)
[2021-10-02] MEDS: Multivit, Therapeutic 1 TAB PO SCH (09:33)
[2021-10-02] MEDS: Cyclobenzaprine 10 MG TAB PO PRN (10:09)
[2021-10-02 10:27] LABS: #Eosinphils 0.7 thou/uL (0.0-0.7); #Lymphocytes 2.5 thou/uL (1.20-3.40); #Monocytes 1.2 thou/uL (0.11-0.59); #Neutrophils 10.5 thou/uL (1.40-6.50); %Basophils 0.3 % (0.0-1.0); %Eosinophils 4.8 % (0.0-10.0); %Lymphocytes 16.5 % (21.0-51.0); %Monocytes 7.9 % (0.0-10.0); %Neutrophils 70.5 % (42.0-75.0); Hemoglobin 13.3 g/dL (12.0-16.0); Mean Corpuscular HGB CONC 31.5 g/dL (32.0-36.0); Mean Corpuscular Hemoglobin 26.8 pg (27.0-31.0); Mean Corpuscular Volume 85.1 fL (78.0-98.0); Platelet Count 294 thou/uL (130-400); RBC Distribution Width 14.7 % (11.5-14.5); Red Blood Cell (RBC) Count 4.96 mill/uL (4.20-5.40); White Blood Cell (WBC) Count 14.9 thou/uL (4.8-10.8)
[2021-10-02] MEDS ORDERED: Furosemide 20 MG/2 ML VIAL SLOW IVP SCH (12:00)
[2021-10-02] MEDS ORDERED: Furosemide 40 MG TAB PO SCH (14:15)
[2021-10-02] MEDS: Atorvastatin Calcium 40 MG TAB PO SCH (20:20)
[2021-10-02] MEDS: Acetaminophen 325 MG TAB PO PRN (20:20)
[2021-10-02] MEDS: Losartan 25 MG TAB PO SCH (20:21)
[2021-10-02] MEDS: Montelukast Sodium 10 mg Tablet PO SCH (20:21)
[2021-10-03] MEDS: Acetaminophen 325 MG TAB PO PRN ×2 (05:38→14:43)
[2021-10-03] MEDS: Mometasone 200 MCG/Formoterol 5 MCG 120 PUFF INHALER INH SCH (07:54)
[2021-10-03] MEDS: Folic Acid 1 MG TAB PO SCH (09:22)
[2021-10-03] MEDS: Clopidogrel Bisulfate 75 MG TAB PO SCH (09:22)
[2021-10-03] MEDS: Liothyronine Sodium 5 MCG TAB PO SCH (09:23)
[2021-10-03] MEDS: Loratadine 10 MG TAB PO PRN (09:23)
[2021-10-03] MEDS: Multivit, Therapeutic 1 TAB PO SCH (09:23)
[2021-10-03] MEDS: Fenofibrate Nanocrystallized 145 MG TAB PO SCH (09:23)
[2021-10-03] MEDS: Apixaban 5 MG TAB PO SCH ×2 (09:23→18:57)
[2021-10-03] MEDS ORDERED: Furosemide 20 MG TAB PO PRN (12:17)
[2021-10-03 15:36] VITALS: BP 155/56; TEMP 98.4
== END 2021-10-03 19:02 | disposition home or self-care (01) | DRG 246 ==
LOC: ERS 10:09 → CCL 10:46 → CCU 11:43 → 2NO 09-30 16:53
PROVIDERS: ADMIT Internal Medicine Cardiovascular Disease; ATTEND Internal Medicine
PROC: 027034Z Dilation of Coronary Artery, One Artery with Drug-eluting Intraluminal Device, Percutaneous Approach (ICD-10-PCS; principal; 2021-09-27)
PROC: 4A023N7 Measurement of Cardiac Sampling and Pressure, Left Heart, Percutaneous Approach (ICD-10-PCS; 2021-09-27)
PROC: B2111ZZ Fluoroscopy of Multiple Coronary Arteries using Low Osmolar Contrast (ICD-10-PCS; 2021-09-27)
PROC: B2151ZZ Fluoroscopy of Left Heart using Low Osmolar Contrast (ICD-10-PCS; 2021-09-27)
PROC: 5A1223Z Performance of Cardiac Pacing, Continuous (ICD-10-PCS; 2021-09-27)
PROC: 02HK3JZ Insertion of Pacemaker Lead into Right Ventricle, Percutaneous Approach (ICD-10-PCS; 2021-09-27)
PROC: 5A09357 Assistance with Respiratory Ventilation, Less than 24 Consecutive Hours, Continuous Positive Airway Pressure (ICD-10-PCS; 2021-09-30)
PROC: 5A09357 Assistance with Respiratory Ventilation, Less than 24 Consecutive Hours, Continuous Positive Airway Pressure (ICD-10-PCS; 2021-10-01)
PROC: 5A09357 Assistance with Respiratory Ventilation, Less than 24 Consecutive Hours, Continuous Positive Airway Pressure (ICD-10-PCS; 2021-10-02)
DX: R00.1 Bradycardia, unspecified (principal); R57.0 Cardiogenic shock; N17.9 Acute kidney failure, unspecified; M19.90 Unspecified osteoarthritis, unspecified site; E03.9 Hypothyroidism, unspecified; E06.3 Autoimmune thyroiditis; K21.9 Gastro-esophageal reflux disease without esophagitis; G43.909 Migraine, unspecified, not intractable, without status migrainosus; I10 Essential (primary) hypertension; E11.9 Type 2 diabetes mellitus without complications; I73.00 Raynaud's syndrome without gangrene; T50.8X5A Adverse effect of diagnostic agents, initial encounter; I25.10 Atherosclerotic heart disease of native coronary artery without angina pectoris; G47.33 Obstructive sleep apnea (adult) (pediatric); E78.5 Hyperlipidemia, unspecified; J45.909 Unspecified asthma, uncomplicated; Z96.1 Presence of intraocular lens; Z99.81 Dependence on supplemental oxygen; Z98.51 Tubal ligation status; Z98.891 History of uterine scar from previous surgery; Z72.89 Other problems related to lifestyle; Z88.8 Allergy status to other drugs, medicaments and biological substances; Z88.1 Allergy status to other antibiotic agents; Z88.6 Allergy status to analgesic agent; Z91.041 Radiographic dye allergy status; Z91.040 Latex allergy status; Z91.013 Allergy to seafood; Z91.018 Allergy to other foods; Z98.890 Other specified postprocedural states; Z98.42 Cataract extraction status, left eye; Z98.41 Cataract extraction status, right eye; Z79.84 Long term (current) use of oral hypoglycemic drugs; Z79.899 Other long term (current) drug therapy; Z79.01 Long term (current) use of anticoagulants; Z79.02 Long term (current) use of antithrombotics/antiplatelets; Z20.822 Contact with and (suspected) exposure to COVID-19
CPT/HCPCS: 36415; 36416; 71045; 80048; 80053; 82550; 82553; 82805; 84484; 85025; 85347; 85730; 92928; 92953; 93005; 93010; 93306; 93458; 93798; 96374; 96375; C1769; C1874; C9600; J0171; J0360; J0461; J1200; J1644; J1650; J1720; J1940; J2001; J2250; J2405; J3010; J7050; J7512; Q9967; U0002

== ENCOUNTER 2021-12-15 14:02 | Outpatient (CLI) | payer MEDICARE, OTHER | END 2021-12-15 14:03 | disposition home or self-care (01) | LOC: MRI 14:02 | PROVIDERS: ATTEND Nurse Practitioner Family | DX: M51.16 Intervertebral disc disorders with radiculopathy, lumbar region (principal); M51.27 Other intervertebral disc displacement, lumbosacral region; M48.56XA Collapsed vertebra, not elsewhere classified, lumbar region, initial encounter for fracture; M48.061 Spinal stenosis, lumbar region without neurogenic claudication; M48.07 Spinal stenosis, lumbosacral region; R60.0 Localized edema | CPT/HCPCS: 72148 ==

== ENCOUNTER 2022-01-20 08:44 | Outpatient (CLI) | payer MEDICARE, OTHER | END 2022-01-20 08:45 | disposition home or self-care (01) | LOC: RAD 08:44 | PROVIDERS: ATTEND Internal Medicine Critical Care Medicine | DX: R06.09 Other forms of dyspnea (principal); J98.4 Other disorders of lung; M47.814 Spondylosis without myelopathy or radiculopathy, thoracic region | CPT/HCPCS: 71046 ==

== ENCOUNTER 2022-01-28 14:27 | Outpatient (CLI) | payer MEDICARE, OTHER | END 2022-01-28 14:28 | disposition home or self-care (01) | LOC: BICCT 14:27 | PROVIDERS: ATTEND Internal Medicine Critical Care Medicine | DX: R06.00 Dyspnea, unspecified (principal); J84.9 Interstitial pulmonary disease, unspecified | CPT/HCPCS: 71250 ==

== ENCOUNTER 2022-02-15 02:38 | Inpatient (IN) | payer MEDICARE, OTHER ==
[2022-02-15 03:15] LABS: #Lymphocytes 1.3 thou/uL (1.20-3.40); #Monocytes 0.6 thou/uL (0.11-0.59); #Neutrophils 13.3 thou/uL (1.40-6.50); %Basophils 0.2 % (0.0-1.0); %Eosinophils 0.2 % (0.0-10.0); %Lymphocytes 8.8 % (21.0-51.0); %Monocytes 3.8 % (0.0-10.0); Hemoglobin 13.1 g/dL (12.0-16.0); Mean Corpuscular HGB CONC 31.3 g/dL (32.0-36.0); Mean Corpuscular Hemoglobin 24.9 pg (27.0-31.0); Mean Corpuscular Volume 79.3 fl (78.0-98.0); Mean Platelet Volume 7.4 fL (7.4-10.4); Platelet Count 280 thou/uL (130-400); RBC Distribution Width 15.2 % (11.5-14.5); Red Blood Cell (RBC) Count 5.26 mill/uL (4.20-5.40); White Blood Cell (WBC) Count 15.3 thou/uL (4.8-10.8)
[2022-02-15 03:36] LABS: ALT (SGPT) 26 U/L (8-55); AST (SGOT) 27 U/L (5-34); Alkaline Phosphatase 116 U/L (40-110); Anion Gap 17 mmol/L (10-20); BUN (Urea Nitrogen) 25 mg/dL (9.8-20.1); Bilirubin, Total 0.4 mg/dL (0.2-1.2); Calc. Creatinine Clearance 0 mL/min (70-130); Calcium 9.7 mg/dL (7.8-10.44); Carbon Dioxide 20 mmol/L (23-31); Chloride 106 mmol/L (98-107); Estimated GFR 52; Globulin 3.6 g/dL (2.4-3.5); Glucose 162 mg/dL (83-110); Potassium 4.5 mmol/L (3.5-5.1); Protein, Total 7.6 g/dL (5.8-8.1); Sodium 138 mmol/L (136-145)
[2022-02-15] MEDS ORDERED: Nitroglycerin 2% Ointment 1 INCH/1 GM Packet ONE (06:03)
[2022-02-15 07:15] LABS: Troponin I 0.258 ng/mL (< 0.028)
[2022-02-15] MEDS ORDERED: Ondansetron PF 4 MG/2 ML Vial IVP PRN (07:41)
[2022-02-15] MEDS ORDERED: HumaLOG 300 UNITS/3 ML VIAL SC PRN ×2 (08:21)
[2022-02-15] MEDS ORDERED: Dextrose 50% Abboject 50 ML SYRINGE SLOW IVP PRN (08:21)
[2022-02-15] MEDS ORDERED: Dextrose 5% in Water 1,000 ML IV PRN (08:21)
[2022-02-15 09:39] LABS: Troponin I 0.433 ng/mL (< 0.028)
[2022-02-15] MEDS ORDERED: Morphine 4 MG/ML VIAL ONE (10:25)
[2022-02-15 10:41] VITALS: BMI 32.2
[2022-02-15] MEDS ORDERED: Morphine 4 MG/ML VIAL SLOW IVP SCH (10:45)
[2022-02-15] MEDS ORDERED: Hydrocortisone Sod Succ/PF 250 mg/2 ml Vial SLOW IVP SCH (11:00)
[2022-02-15] MEDS ORDERED: Heparin 25,000 units/D5W 500 ML IVPB SCH (11:00)
[2022-02-15] MEDS ORDERED: Nitroglycerin 50 MG/250 ML BOT 250 ML IVPB SCH (11:00)
[2022-02-15] MEDS ORDERED: Nitroglycerin 50 MG/250 ML BOT 250 ML ONE (11:03)
[2022-02-15] MEDS ORDERED: diphenhydrAMINE 50 MG/ML VIAL ONE (11:03)
[2022-02-15] MEDS ORDERED: Heparin 25,000 units/D5W 500 ML ONE (11:03)
[2022-02-15] MEDS ORDERED: methylPREDNISolone Sod Succ/PF 125 MG/2 ML VIAL ONE (11:03)
[2022-02-15] MEDS ORDERED: Heparin 10,000 UNITS/ 10 ML VIAL ONE (11:03)
[2022-02-15] MEDS: diphenhydrAMINE 25 MG CAP PO SCH ×3 (11:15→22:45)
[2022-02-15] MEDS ORDERED: diphenhydrAMINE 25 MG CAP ONE (11:15)
[2022-02-15] MEDS ORDERED: predniSONE 20 MG TAB ONE (11:15)
[2022-02-15] MEDS: predniSONE 20 MG TAB PO SCH ×3 (11:15→22:45)
[2022-02-15] MEDS ORDERED: Hydrocortisone Sod Succ/PF 100 mg/2 ml Vial ONE (11:15)
[2022-02-15 11:23] LABS: Hemoglobin 12.5 g/dL (12.0-16.0); Platelet Count 307 thou/uL (130-400)
[2022-02-15] MEDS ORDERED: Hydrocortisone Sod Succ/PF 100 mg/2 ml Vial IVP SCH (11:45)
[2022-02-15] MEDS ORDERED: Communication Order-Pharmacy FS PRN (14:45)
[2022-02-15] MEDS: Famotidine 20 MG TAB PO SCH (20:37)
[2022-02-15] MEDS ORDERED: Montelukast Sodium 10 mg Tablet PO SCH (21:00)
[2022-02-16] MEDS: Heparin 10,000 UNITS/ 10 ML VIAL SLOW IVP SCH ×2 (00:14→23:31)
[2022-02-16] MEDS ORDERED: methylPREDNISolone Sod Succ/PF 125 MG/2 ML VIAL IVP PRN (05:00)
[2022-02-16] MEDS ORDERED: diphenhydrAMINE 25 MG CAP PO SCH (05:00)
[2022-02-16] MEDS ORDERED: Diazepam 5 MG TAB PO SCH (05:00)
[2022-02-16] MEDS ORDERED: Famotidine/PF 20 mg/2ml Vial SLOW IVP SCH (05:00)
[2022-02-16] MEDS: predniSONE 20 MG TAB PO SCH ×3 (05:05→16:20)
[2022-02-16] MEDS: diphenhydrAMINE 25 MG CAP PO SCH ×4 (05:06→22:30)
[2022-02-16] MEDS: Sodium Chloride 0.9% 1,000 ML IV SCH ×3 (05:09→23:41)
[2022-02-16 05:18] LABS: Hemoglobin 11.7 g/dL (12.0-16.0); Mean Corpuscular Hemoglobin 24.7 pg (27.0-31.0); Mean Corpuscular Volume 79.7 fl (78.0-98.0); Mean Platelet Volume 7.6 fL (7.4-10.4); Platelet Count 286 thou/uL (130-400); RBC Distribution Width 15.1 % (11.5-14.5); Red Blood Cell (RBC) Count 4.72 mill/uL (4.20-5.40); White Blood Cell (WBC) Count 20.5 thou/uL (4.8-10.8)
[2022-02-16 05:30] LABS: Anion Gap 11 mmol/L (10-20); BUN (Urea Nitrogen) 29 mg/dL (9.8-20.1); Calc. Creatinine Clearance 56 mL/min (70-130); Calcium 9.3 mg/dL (7.8-10.44); Carbon Dioxide 24 mmol/L (23-31); Chloride 105 mmol/L (98-107); Estimated GFR 58; Glucose 143 mg/dL (83-110); Potassium 4.4 mmol/L (3.5-5.1); Sodium 136 mmol/L (136-145)
[2022-02-16 05:34] LABS: Band 2 % (5-11); Lymphocytes 21 % (21-51); MDiff Complete? YES; Monocytes 5 % (0-10); Neutrophil 72 % (42-75); Platelet Morphology Comment Appears Adequate; RBC Morphology Normal
[2022-02-16] MEDS ORDERED: Heparin 10,000 UNITS/ 10 ML VIAL ONE (06:12)
[2022-02-16] MEDS ORDERED: Nitroglycerin 100MG/250ML BOT 250 ML ONE (06:12)
[2022-02-16] MEDS ORDERED: Lidocaine 1% PF 5 ML VIAL ONE (06:12)
[2022-02-16] MEDS ORDERED: Verapamil 5 MG/2 ML VIAL ONE (06:24)
[2022-02-16] MEDS: Famotidine 20 MG TAB PO SCH ×2 (07:59→21:37)
[2022-02-16] MEDS ORDERED: Fentanyl 100 MCG/2 ML VIAL ONE (11:04)
[2022-02-16] MEDS ORDERED: Midazolam HCl 2 mg/2 ml Vial ONE (11:05)
[2022-02-16] MEDS ORDERED: Hydrocortisone Sod Succ/PF 100 mg/2 ml Vial ONE (11:22)
[2022-02-16] MEDS ORDERED: Famotidine/PF 20 mg/2ml Vial ONE (11:22)
[2022-02-16] MEDS ORDERED: hydrALAZINE 20 MG/ML VIAL ONE (12:11)
[2022-02-16] MEDS ORDERED: Iopamidol 370 76% 100 ML VIAL ONE (12:22)
[2022-02-16] MEDS ORDERED: diphenhydrAMINE 50 MG/ML VIAL ONE (13:06)
[2022-02-16 13:21] LABS: PTT 230.8 sec (22.9-36.1)
[2022-02-16] MEDS ORDERED: diphenhydrAMINE 50 MG/ML VIAL IVP SCH (13:30)
[2022-02-16] MEDS ORDERED: Communication Order-Pharmacy FS ONE (17:52)
[2022-02-16 19:57] LABS: Free T4 (Free Thyroxine) 1.12 ng/dL (0.70-1.48)
[2022-02-16] MEDS ORDERED: Montelukast Sodium 10 mg Tablet PO SCH (21:00)
[2022-02-16] MEDS ORDERED: Atorvastatin Calcium 40 MG TAB PO SCH (21:00)
[2022-02-16] MEDS ORDERED: Acetaminophen 325 MG TAB PO PRN (21:04)
[2022-02-16] MEDS: Metoprolol Tartrate 25 MG TAB PO SCH (21:39)
[2022-02-17 00:48] LABS: SARS-CoV-2 NAA Rapid Test Not Detected (NotDetected)
[2022-02-17 04:05] LABS: #Eosinphils 0.1 thou/uL (0.0-0.7); #Lymphocytes 1.4 thou/uL (1.20-3.40); #Monocytes 1.1 thou/uL (0.11-0.59); #Neutrophils 18.7 thou/uL (1.40-6.50); %Eosinophils 0.3 % (0.0-10.0); %Lymphocytes 6.5 % (21.0-51.0); %Monocytes 5.2 % (0.0-10.0); Mean Corpuscular HGB CONC 31.5 g/dL (32.0-36.0); Mean Corpuscular Hemoglobin 24.9 pg (27.0-31.0); Mean Corpuscular Volume 79.1 fl (78.0-98.0); Mean Platelet Volume 7.7 fL (7.4-10.4); Platelet Count 289 thou/uL (130-400); RBC Distribution Width 15.1 % (11.5-14.5); Red Blood Cell (RBC) Count 4.41 mill/uL (4.20-5.40); White Blood Cell (WBC) Count 21.2 thou/uL (4.8-10.8)
[2022-02-17 04:26] LABS: Anion Gap 13 mmol/L (10-20); BUN (Urea Nitrogen) 33 mg/dL (9.8-20.1); Calc. Creatinine Clearance 57 mL/min (70-130); Calcium 8.7 mg/dL (7.8-10.44); Carbon Dioxide 22 mmol/L (23-31); Chloride 107 mmol/L (98-107); Estimated GFR 60; Glucose 113 mg/dL (83-110); Potassium 3.7 mmol/L (3.5-5.1); Sodium 138 mmol/L (136-145)
[2022-02-17] MEDS: diphenhydrAMINE 25 MG CAP PO SCH (05:09)
[2022-02-17] MEDS: Metoprolol Tartrate 25 MG TAB PO SCH (05:10)
[2022-02-17] MEDS ORDERED: Levothyroxine Sodium 100 MCG TAB PO SCH (06:00)
[2022-02-17] MEDS ORDERED: fentaNYL PF 100 MCG/2 ML SYRINGE ONE (06:29)
[2022-02-17] MEDS ORDERED: Rocuronium Bromide 50 MG/5 ML VIAL ONE (06:30)
[2022-02-17] MEDS ORDERED: Insulin Regular 300 UNITS/3 ML VIAL ONE (06:30)
[2022-02-17] MEDS ORDERED: niCARdipine 25 MG/10 ML VIAL ONE (06:30)
[2022-02-17] MEDS ORDERED: Midazolam HCl 5 mg/5 ml Vial ONE (06:30)
[2022-02-17] MEDS ORDERED: PHENYLEPHRINE-NS 100 MCG/ML 10 ML SYRINGE ONE (06:40)
[2022-02-17] MEDS ORDERED: Heparin 10,000 UNITS/1 ML VIAL 30,000 UNITS in Sodium Chloride 0.9% 1,000 ML FS SCH (07:00)
[2022-02-17] MEDS ORDERED: Cardioplegic Soln 1,000 ML BAG ONE (07:49)
[2022-02-17] MEDS ORDERED: Magnesium Sulfate 1 GM/2 ML VIAL ONE (07:49)
[2022-02-17] MEDS ORDERED: Heparin 5,000 UNITS/ML VIAL ONE (07:49)
[2022-02-17] MEDS ORDERED: Lidocaine 2% PF 100 mg/5 ml Syringe ONE (07:49)
[2022-02-17] MEDS ORDERED: Heparin 30,000 units/30 ml VIAL ONE (07:49)
[2022-02-17] MEDS ORDERED: Protamine Sulfate 250 MG/25 ML VIAL ONE (07:49)
[2022-02-17] MEDS ORDERED: PROPOFOL 200 MG/20 ML VIAL ONE (07:49)
[2022-02-17] MEDS ORDERED: Albumin 25% 25 GM/100 ML BOT ONE (07:49)
[2022-02-17] MEDS ORDERED: Aminocaproic Acid 5 GM/20 ML VIAL ONE (07:49)
[2022-02-17] MEDS ORDERED: Papaverine 60 MG/2 ML VIAL ONE (07:49)
[2022-02-17] MEDS ORDERED: Sodium Bicarb 50 MEQ/50 ML Abboject 8.4% SYRINGE ONE (07:49)
[2022-02-17] MEDS ORDERED: Rocuronium Bromide 10 MG/ML (10ML VIAL) ONE (07:49)
[2022-02-17] MEDS ORDERED: Calcium Chloride 1 GM/10 ML Abboject SYRINGE ONE (07:49)
[2022-02-17] MEDS ORDERED: Thrombin 5000 UNITS/5 ML VIAL ONE (07:49)
[2022-02-17] MEDS ORDERED: Mannitol 12.5 GM/50 ML ONE (07:49)
[2022-02-17] MEDS ORDERED: Norepinephrine 4 MG/4 ML VIAL ONE (07:49)
[2022-02-17] MEDS ORDERED: Mag-Al 1200 mg/1200 mg/30 ML UDCUP PO PRN (11:27)
[2022-02-17] MEDS ORDERED: Morphine 2 MG/ML VIAL SLOW IVP PRN (11:27)
[2022-02-17] MEDS ORDERED: Bisacodyl 5 MG TAB PO PRN (11:27)
[2022-02-17] MEDS ORDERED: Promethazine HCl 25 MG/ML VIAL IM PRN (11:27)
[2022-02-17] MEDS ORDERED: niCARdipine 25 MG in Sodium Chloride 0.9% 250 ML 250 ML IVPB PRN (11:27)
[2022-02-17] MEDS ORDERED: Post-Op Insulin Drip Protocol IVPB ONE (11:27)
[2022-02-17] MEDS ORDERED: Guaifenesin DM 100-10/5 ML UDCUP PO PRN (11:27)
[2022-02-17] MEDS ORDERED: Bisacodyl 10 MG SUPP PR PRN (11:27)
[2022-02-17] MEDS ORDERED: Hetastarch 6% 500 ML 500 ML IVPB PRN (11:27)
[2022-02-17] MEDS ORDERED: NOREPINEPHRINE 8 MG/250 ML-D5W 250 ML IVPB PRN (11:27)
[2022-02-17] MEDS ORDERED: Acetaminophen 325 MG TAB PO PRN (11:27)
[2022-02-17] MEDS ORDERED: DOPamine 400 MG/D5W 250 ML 250 ML IVPB PRN (11:27)
[2022-02-17] MEDS ORDERED: Nitroglycerin 50 MG/250 ML BOT 250 ML IVPB PRN (11:27)
[2022-02-17] MEDS ORDERED: FENTANYL 50 MCG/ML 1 ML VIAL SLOW IVP PRN (11:37)
[2022-02-17 11:51] LABS: Actual Bicarbonate (HCO3a) 20.4 mEq/L (22-28); Base Excess (BEa) -3.7 mEq/L (-2.0 to +3.0); CO2 Tension 33.3 mmHg (35.0-45.0); Calcium, Ionized (arterial) 1.11 mmol/L (1.12-1.30); Hemoglobin (Hb) 10.4 g/dL (12.0-16.0); O2 Tension (PaO2), arterial 130.6 mmHg (> 70.0); Potassium - ABG Lab 3.58 mmol/L (3.70-5.30); Puncture Site Arterial Line
[2022-02-17 11:52] LABS: ALV-art Gradient 112.975 mmHg (0-20)
[2022-02-17] MEDS ORDERED: Dextrose 5% in Water 1,000 ML IV PRN (12:00)
[2022-02-17] MEDS ORDERED: Dextrose 50% Abboject 50 ML SYRINGE SLOW IVP PRN (12:00)
[2022-02-17] MEDS ORDERED: HUMULIN R 100 UNITS in Sodium Chloride 0.9% 100 ML IVPB SCH (12:00)
[2022-02-17] MEDS ORDERED: Insulin Regular 300 UNITS/3 ML VIAL SC PRN (12:00)
[2022-02-17 12:04] LABS: INR-International Normal Ratio 1.5; PTT 34.4 sec (22.9-36.1); Prothrombin Time 18.4 sec (12.0-14.7)
[2022-02-17 12:05] LABS: #Basophils 0.1 thou/uL (0.0-0.2); #Eosinphils 0.2 thou/uL (0.0-0.7); #Lymphocytes 1.4 thou/uL (1.20-3.40); #Monocytes 1.5 thou/uL (0.11-0.59); #Neutrophils 18.2 thou/uL (1.40-6.50); %Basophils 0.4 % (0.0-1.0); %Eosinophils 0.9 % (0.0-10.0); %Lymphocytes 6.6 % (21.0-51.0); %Monocytes 6.8 % (0.0-10.0); %Neutrophils 85.3 % (42.0-75.0); Hemoglobin 9.9 g/dL (12.0-16.0); Mean Corpuscular HGB CONC 32.2 g/dL (32.0-36.0); Mean Corpuscular Hemoglobin 25.6 pg (27.0-31.0); Mean Corpuscular Volume 79.6 fl (78.0-98.0); Mean Platelet Volume 7.4 fL (7.4-10.4); Platelet Count 188 thou/uL (130-400); RBC Distribution Width 14.7 % (11.5-14.5); Red Blood Cell (RBC) Count 3.84 mill/uL (4.20-5.40); White Blood Cell (WBC) Count 21.4 thou/uL (4.8-10.8)
[2022-02-17 12:22] LABS: Anion Gap 11 mmol/L (10-20); BUN (Urea Nitrogen) 28 mg/dL (9.8-20.1); Calc. Creatinine Clearance 66 mL/min (70-130); Calcium 7.3 mg/dL (7.8-10.44); Carbon Dioxide 20 mmol/L (23-31); Chloride 115 mmol/L (98-107); Estimated GFR 75; Glucose 151 mg/dL (83-110); Potassium 3.7 mmol/L (3.5-5.1); Sodium 142 mmol/L (136-145)
[2022-02-17] MEDS: Furosemide 20 MG/2 ML VIAL SLOW IVP SCH ×2 (12:31→13:12)
[2022-02-17] MEDS: Potassium Chloride 20 MEQ/100 ML PREMIX BAG IVPB PRN ×2 (12:37→18:10)
[2022-02-17] MEDS: hydrALAZINE 20 MG/ML VIAL SLOW IVP PRN ×2 (13:03→21:33)
[2022-02-17] MEDS: Lactated Ringer's 1,000 ML IV SCH (13:13)
[2022-02-17 17:19] LABS: Hemoglobin 11.2 g/dL (12.0-16.0)
[2022-02-17 17:32] LABS: Potassium 3.8 mmol/L (3.5-5.1)
[2022-02-17] MEDS: FENTANYL 50 MCG/ML 1 ML VIAL SLOW IVP PRN ×2 (19:20→22:07)
[2022-02-17] MEDS: Famotidine/PF 20 mg/2ml Vial SLOW IVP SCH (20:44)
[2022-02-17] MEDS: HYDROcodone/Acetaminophen 5/325 mg Tablet PO PRN (20:56)
[2022-02-18] MEDS: HYDROcodone/Acetaminophen 5/325 mg Tablet PO PRN ×4 (01:17→22:10)
[2022-02-18 04:15] LABS: #Eosinphils 0.1 thou/uL (0.0-0.7); #Lymphocytes 1.8 thou/uL (1.20-3.40); #Monocytes 2.3 thou/uL (0.11-0.59); #Neutrophils 18.9 thou/uL (1.40-6.50); %Basophils 0.1 % (0.0-1.0); %Eosinophils 0.4 % (0.0-10.0); %Lymphocytes 7.7 % (21.0-51.0); %Monocytes 10.1 % (0.0-10.0); %Neutrophils 81.7 % (42.0-75.0); Hemoglobin 11.1 g/dL (12.0-16.0); Mean Corpuscular HGB CONC 30.7 g/dL (32.0-36.0); Mean Corpuscular Hemoglobin 24.6 pg (27.0-31.0); Mean Corpuscular Volume 80.2 fl (78.0-98.0); Mean Platelet Volume 7.6 fL (7.4-10.4); Platelet Count 223 thou/uL (130-400); RBC Distribution Width 15.3 % (11.5-14.5); Red Blood Cell (RBC) Count 4.52 mill/uL (4.20-5.40); White Blood Cell (WBC) Count 23.1 thou/uL (4.8-10.8)
[2022-02-18 04:31] LABS: Anion Gap 9 mmol/L (10-20); BUN (Urea Nitrogen) 31 mg/dL (9.8-20.1); Calc. Creatinine Clearance 56 mL/min (70-130); Calcium 8.1 mg/dL (7.8-10.44); Carbon Dioxide 22 mmol/L (23-31); Chloride 111 mmol/L (98-107); Estimated GFR 61; Glucose 117 mg/dL (83-110); Potassium 4.3 mmol/L (3.5-5.1); Sodium 138 mmol/L (136-145)
[2022-02-18] MEDS: Lactated Ringer's 1,000 ML IV SCH (04:32)
[2022-02-18] MEDS: FENTANYL 50 MCG/ML 1 ML VIAL SLOW IVP PRN (06:22)
[2022-02-18] MEDS: Famotidine/PF 20 mg/2ml Vial SLOW IVP SCH (09:04)
[2022-02-18] MEDS: Clopidogrel Bisulfate 75 MG TAB PO SCH (09:04)
[2022-02-18] MEDS ORDERED: Nitroglycerin 0.4 MG TAB (25 Tab Bottle) SL PRN (10:49)
[2022-02-18] MEDS ORDERED: Dextrose 50% Abboject 50 ML SYRINGE SLOW IVP PRN (11:17)
[2022-02-18] MEDS ORDERED: Dextrose 5% in Water 1,000 ML IV PRN (11:17)
[2022-02-18] MEDS: Ketorolac Tromethamine 30 MG/ML VIAL IVP SCH ×2 (11:23→17:42)
[2022-02-18] MEDS ORDERED: Insulin Regular 300 UNITS/3 ML VIAL SC PRN (11:30)
[2022-02-18] MEDS ORDERED: Insulin Glargine 30 UNITS/0.3 ML VIAL SC PRN (11:51)
[2022-02-18] MEDS: Metoprolol Tartrate 25 MG TAB PO SCH (21:09)
[2022-02-18] MEDS: Famotidine 20 MG TAB PO SCH (21:10)
[2022-02-18] MEDS: Atorvastatin Calcium 40 MG TAB PO SCH (21:10)
[2022-02-19] MEDS: Ketorolac Tromethamine 30 MG/ML VIAL IVP SCH ×4 (00:09→17:48)
[2022-02-19] MEDS: HYDROcodone/Acetaminophen 5/325 mg Tablet PO PRN ×2 (04:45→18:50)
[2022-02-19 05:01] LABS: #Eosinphils 0.4 thou/uL (0.0-0.7); #Lymphocytes 2.1 thou/uL (1.20-3.40); #Monocytes 1.9 thou/uL (0.11-0.59); #Neutrophils 17.1 thou/uL (1.40-6.50); %Basophils 0.1 % (0.0-1.0); %Eosinophils 1.8 % (0.0-10.0); %Lymphocytes 9.8 % (21.0-51.0); %Neutrophils 79.4 % (42.0-75.0); Hemoglobin 9.4 g/dL (12.0-16.0); Mean Corpuscular HGB CONC 30.5 g/dL (32.0-36.0); Mean Corpuscular Hemoglobin 24.9 pg (27.0-31.0); Mean Corpuscular Volume 81.6 fl (78.0-98.0); Mean Platelet Volume 7.8 fL (7.4-10.4); Platelet Count 185 thou/uL (130-400); RBC Distribution Width 15.4 % (11.5-14.5); Red Blood Cell (RBC) Count 3.79 mill/uL (4.20-5.40); White Blood Cell (WBC) Count 21.5 thou/uL (4.8-10.8)
[2022-02-19 05:19] LABS: Anion Gap 8 mmol/L (10-20); BUN (Urea Nitrogen) 33 mg/dL (9.8-20.1); Calc. Creatinine Clearance 58 mL/min (70-130); Calcium 8.4 mg/dL (7.8-10.44); Carbon Dioxide 25 mmol/L (23-31); Chloride 108 mmol/L (98-107); Estimated GFR 58; Glucose 95 mg/dL (83-110); Potassium 4.2 mmol/L (3.5-5.1); Sodium 137 mmol/L (136-145)
[2022-02-19] MEDS: Levothyroxine Sodium 100 MCG TAB PO SCH (06:01)
[2022-02-19] MEDS ORDERED: HumaLOG 300 UNITS/3 ML VIAL SC PRN (06:53)
[2022-02-19] MEDS ORDERED: Dextrose 50% Abboject 50 ML SYRINGE SLOW IVP PRN (06:53)
[2022-02-19] MEDS ORDERED: Dextrose 5% in Water 1,000 ML IV PRN (06:53)
[2022-02-19] MEDS ORDERED: Potassium Chloride 10 MEQ TAB PO SCH (08:00)
[2022-02-19] MEDS ORDERED: Furosemide 40 MG TAB PO SCH (09:00)
[2022-02-19] MEDS: Furosemide 40 MG TAB PO SCH ×2 (10:28→13:41)
[2022-02-19] MEDS: Famotidine 20 MG TAB PO SCH ×2 (10:28→20:22)
[2022-02-19] MEDS: Polyethylene Glycol 3350 17 GM Packet PO SCH (10:28)
[2022-02-19] MEDS: Clopidogrel Bisulfate 75 MG TAB PO SCH (10:28)
[2022-02-19] MEDS: Metoprolol Tartrate 25 MG TAB PO SCH (10:28)
[2022-02-19] MEDS: Potassium Chloride 10 MEQ TAB PO SCH ×2 (10:30→17:48)
[2022-02-19] MEDS ORDERED: Metoprolol Tartrate 25 MG TAB PO SCH ×2 (16:00→21:00)
[2022-02-19] MEDS: Atorvastatin Calcium 40 MG TAB PO SCH (20:23)
[2022-02-20] MEDS: Levothyroxine Sodium 100 MCG TAB PO SCH (05:35)
[2022-02-20 05:51] LABS: Hemoglobin 9.1 g/dL (12.0-16.0); Mean Corpuscular HGB CONC 31.3 g/dL (32.0-36.0); Mean Corpuscular Hemoglobin 25.2 pg (27.0-31.0); Mean Corpuscular Volume 80.5 fl (78.0-98.0); Mean Platelet Volume 7.4 fL (7.4-10.4); Platelet Count 216 thou/uL (130-400); RBC Distribution Width 15.5 % (11.5-14.5); Red Blood Cell (RBC) Count 3.63 mill/uL (4.20-5.40); White Blood Cell (WBC) Count 21.6 thou/uL (4.8-10.8)
[2022-02-20] MEDS ORDERED: Metolazone 5 MG TAB PO SCH (06:45)
[2022-02-20] MEDS: HYDROcodone/Acetaminophen 5/325 mg Tablet PO PRN ×3 (08:57→20:13)
[2022-02-20] MEDS: Famotidine 20 MG TAB PO SCH ×2 (08:58→20:14)
[2022-02-20] MEDS: Furosemide 40 MG TAB PO SCH ×2 (08:58→14:40)
[2022-02-20] MEDS: Polyethylene Glycol 3350 17 GM Packet PO SCH (08:58)
[2022-02-20] MEDS: Clopidogrel Bisulfate 75 MG TAB PO SCH (08:59)
[2022-02-20] MEDS: Metoprolol Tartrate 25 MG TAB PO SCH ×2 (08:59→20:13)
[2022-02-20] MEDS: Potassium Chloride 10 MEQ TAB PO SCH ×2 (08:59→16:31)
[2022-02-20] MEDS ORDERED: Cepastat Lozenges 1 LOZ PO PRN (10:14)
[2022-02-20] MEDS ORDERED: Chloraseptic Spray 180 ml Bottle PO PRN (10:14)
[2022-02-20] MEDS ORDERED: Docusate 100 MG CAP PO SCH (10:15)
[2022-02-20] MEDS ORDERED: Loratadine 10 MG TAB PO SCH (11:00)
[2022-02-20] MEDS: Atorvastatin Calcium 40 MG TAB PO SCH (20:14)
[2022-02-21] MEDS: HYDROcodone/Acetaminophen 5/325 mg Tablet PO PRN ×4 (03:28→20:56)
[2022-02-21] MEDS: Levothyroxine Sodium 100 MCG TAB PO SCH (06:09)
[2022-02-21] MEDS: Loratadine 10 MG TAB PO SCH (09:49)
[2022-02-21] MEDS: Potassium Chloride 10 MEQ TAB PO SCH ×2 (09:49→18:28)
[2022-02-21] MEDS: Famotidine 20 MG TAB PO SCH (09:49)
[2022-02-21] MEDS: Clopidogrel Bisulfate 75 MG TAB PO SCH (09:49)
[2022-02-21] MEDS: Furosemide 40 MG TAB PO SCH ×2 (09:49→13:50)
[2022-02-21] MEDS: Metoprolol Tartrate 25 MG TAB PO SCH ×2 (09:49→20:44)
[2022-02-21] MEDS: Docusate 100 MG CAP PO SCH (09:50)
[2022-02-21] MEDS: Polyethylene Glycol 3350 17 GM Packet PO SCH (09:50)
[2022-02-21 10:27] LABS: #Basophils 0.1 thou/uL (0.0-0.2); #Eosinphils 1.1 thou/uL (0.0-0.7); #Lymphocytes 2.3 thou/uL (1.20-3.40); #Monocytes 1.5 thou/uL (0.11-0.59); #Neutrophils 17.8 thou/uL (1.40-6.50); %Basophils 0.2 % (0.0-1.0); %Eosinophils 4.9 % (0.0-10.0); %Lymphocytes 10.1 % (21.0-51.0); %Monocytes 6.6 % (0.0-10.0); %Neutrophils 78.2 % (42.0-75.0); Hemoglobin 10.4 g/dL (12.0-16.0); Mean Corpuscular Hemoglobin 24.8 pg (27.0-31.0); Mean Corpuscular Volume 80.2 fl (78.0-98.0); Mean Platelet Volume 7.3 fL (7.4-10.4); Platelet Count 322 thou/uL (130-400); RBC Distribution Width 15.5 % (11.5-14.5); Red Blood Cell (RBC) Count 4.19 mill/uL (4.20-5.40); White Blood Cell (WBC) Count 22.7 thou/uL (4.8-10.8)
[2022-02-21 10:42] LABS: Anion Gap 12 mmol/L (10-20); BUN (Urea Nitrogen) 39 mg/dL (9.8-20.1); Calc. Creatinine Clearance 50 mL/min (70-130); Calcium 9.5 mg/dL (7.8-10.44); Carbon Dioxide 31 mmol/L (23-31); Chloride 98 mmol/L (98-107); Estimated GFR 52; Glucose 150 mg/dL (83-110); Sodium 137 mmol/L (136-145)
[2022-02-21] MEDS: Atorvastatin Calcium 40 MG TAB PO SCH (20:45)
[2022-02-22] MEDS: Levothyroxine Sodium 100 MCG TAB PO SCH (06:21)
[2022-02-22] MEDS: HYDROcodone/Acetaminophen 5/325 mg Tablet PO PRN ×4 (06:21→19:52)
[2022-02-22] MEDS: Clopidogrel Bisulfate 75 MG TAB PO SCH (09:29)
[2022-02-22] MEDS: Docusate 100 MG CAP PO SCH (09:29)
[2022-02-22] MEDS: Polyethylene Glycol 3350 17 GM Packet PO SCH (09:29)
[2022-02-22] MEDS: Metoprolol Tartrate 25 MG TAB PO SCH ×2 (09:29→21:23)
[2022-02-22] MEDS: Furosemide 40 MG TAB PO SCH ×2 (09:29→14:16)
[2022-02-22] MEDS: Loratadine 10 MG TAB PO SCH (09:29)
[2022-02-22] MEDS: Famotidine 20 MG TAB PO SCH (09:29)
[2022-02-22] MEDS: Potassium Chloride 10 MEQ TAB PO SCH (09:30)
[2022-02-22] MEDS: Ondansetron PF 4 MG/2 ML Vial IVP PRN (14:16)
[2022-02-22] MEDS: Atorvastatin Calcium 40 MG TAB PO SCH (21:23)
[2022-02-23 06:38] LABS: Anion Gap 13 mmol/L (10-20); BUN (Urea Nitrogen) 41 mg/dL (9.8-20.1); Calc. Creatinine Clearance 43 mL/min (70-130); Calcium 9.5 mg/dL (7.8-10.44); Carbon Dioxide 35 mmol/L (23-31); Chloride 90 mmol/L (98-107); Estimated GFR 44; Glucose 100 mg/dL (83-110); Potassium 3.9 mmol/L (3.5-5.1); Sodium 134 mmol/L (136-145)
[2022-02-23 06:50] LABS: #Basophils 0.1 thou/uL (0.0-0.2); #Eosinphils 0.7 thou/uL (0.0-0.7); #Lymphocytes 3.4 thou/uL (1.20-3.40); #Monocytes 1.7 thou/uL (0.11-0.59); #Neutrophils 13.1 thou/uL (1.40-6.50); %Basophils 0.6 % (0.0-1.0); %Eosinophils 3.9 % (0.0-10.0); %Lymphocytes 17.8 % (21.0-51.0); %Neutrophils 68.7 % (42.0-75.0); Hemoglobin 10.3 g/dL (12.0-16.0); Mean Corpuscular HGB CONC 31.7 g/dL (32.0-36.0); Mean Corpuscular Hemoglobin 25.4 pg (27.0-31.0); Mean Corpuscular Volume 80.2 fl (78.0-98.0); Mean Platelet Volume 6.9 fL (7.4-10.4); Platelet Count 356 10x3/uL (130-400); RBC Distribution Width 15.4 % (11.5-14.5); Red Blood Cell (RBC) Count 4.04 mill/uL (4.20-5.40)
[2022-02-23] MEDS: Levothyroxine Sodium 100 MCG TAB PO SCH (07:14)
[2022-02-23] MEDS ORDERED: Furosemide 40 MG TAB PO SCH (07:30)
[2022-02-23] MEDS ORDERED: Potassium Chloride 10 MEQ TAB PO SCH (08:00)
[2022-02-23] MEDS: Docusate 100 MG CAP PO SCH (08:32)
[2022-02-23] MEDS: Clopidogrel Bisulfate 75 MG TAB PO SCH (08:33)
[2022-02-23] MEDS: Loratadine 10 MG TAB PO SCH (08:33)
[2022-02-23] MEDS: Famotidine 20 MG TAB PO SCH (08:33)
[2022-02-23] MEDS: Metoprolol Tartrate 25 MG TAB PO SCH ×2 (08:33→20:12)
[2022-02-23] MEDS: HYDROcodone/Acetaminophen 5/325 mg Tablet PO PRN ×4 (08:34→21:53)
[2022-02-23] MEDS: Polyethylene Glycol 3350 17 GM Packet PO SCH (08:35)
[2022-02-23 10:48] LABS: Bacteria/HPF None Seen HPF (None Seen); Bilirubin Negative (Negative); Blood, Urine Negative (Negative); Clarity Clear (Clear); Glucose, Urine (Dipstick) Normal (Negative); Ketone, Urine Negative (Negative); Leukocyte Negative Leu/uL (Negative); Nitrite Negative (Negative); Protein, Urine (Dipstick) Negative (Neg-Trace); RBC/HPF 0-3 HPF (0-3); Specific Gravity, Urine 1.014 (1.002-1.036); Squamous Epithelial None Seen HPF (0-3); Urobilinogen Normal mg/dL (Less than 2); WBC/HPF 0-3 HPF (0-3); pH, Urine 6.5 (5.0-9.0)
[2022-02-23 10:50] LABS: Urine Culture Reflex No No
[2022-02-23 12:27] LABS: Actual Bicarbonate (HCO3a) 20.7 mEq/L (22-28); Analyzer IN Cardio OR; Base Excess (BEa) -2.6 mEq/L (-2.0 to +3.0); CO2 Tension 29.4 mmHg (35.0-45.0); Calcium, Ionized (arterial) 1.15 mmol/L (1.12-1.30); Carboxyhemoglobin (COHb) 0.9 gm% (0.0-3.0); Hemoglobin (Hb) 7.4 g/dL (12.0-16.0); O2 Tension (PaO2), arterial 326.1 mmHg (> 70.0); Potassium - ABG Lab 4.19 mmol/L (3.70-5.30); pH, Arterial 7.47 (7.35-7.45)
[2022-02-23 12:27] LABS: Actual Bicarbonate (HCO3a) 28.5 mEq/L (22-28); Analyzer IN Cardio OR; Base Excess (BEa) 2.4 mEq/L (-2.0 to +3.0); CO2 Tension 53.5 mmHg (35.0-45.0); Calcium, Ionized (arterial) 1.33 mmol/L (1.12-1.30); Carboxyhemoglobin (COHb) 0.8 gm% (0.0-3.0); Hemoglobin (Hb) 7.7 g/dL (12.0-16.0); O2 Tension (PaO2), arterial 338.8 mmHg (> 70.0); Potassium - ABG Lab 4.58 mmol/L (3.70-5.30); pH, Arterial 7.35 (7.35-7.45)
[2022-02-23 12:27] LABS: Actual Bicarbonate (HCO3a) 21.3 mEq/L (22-28); Analyzer IN Cardio OR; Base Excess (BEa) -1.2 mEq/L (-2.0 to +3.0); CO2 Tension 28.6 mmHg (35.0-45.0); Calcium, Ionized (arterial) 1.11 mmol/L (1.12-1.30); Carboxyhemoglobin (COHb) 0.4 gm% (0.0-3.0); Hemoglobin (Hb) 10.7 g/dL (12.0-16.0); O2 Tension (PaO2), arterial 477.2 mmHg (> 70.0); Potassium - ABG Lab 3.91 mmol/L (3.70-5.30); pH, Arterial 7.49 (7.35-7.45)
[2022-02-23 12:27] LABS: Actual Bicarbonate (HCO3a) 26.9 mEq/L (22-28); Analyzer IN Cardio OR; CO2 Tension 50.6 mmHg (35.0-45.0); Calcium, Ionized (arterial) 1.03 mmol/L (1.12-1.30); Carboxyhemoglobin (COHb) 1.1 gm% (0.0-3.0); Hemoglobin (Hb) 7.7 g/dL (12.0-16.0); O2 Tension (PaO2), arterial 342.2 mmHg (> 70.0); Potassium - ABG Lab 4.45 mmol/L (3.70-5.30); pH, Arterial 7.34 (7.35-7.45)
[2022-02-23 12:28] LABS: Puncture Site Arterial Line
[2022-02-23 12:28] LABS: Actual Bicarbonate (HCO3a) 21.1 mEq/L (22-28); Analyzer IN Cardio OR; Base Excess (BEa) -2.3 mEq/L (-2.0 to +3.0); CO2 Tension 31.2 mmHg (35.0-45.0); Calcium, Ionized (arterial) 1.09 mmol/L (1.12-1.30); Carboxyhemoglobin (COHb) 0.2 gm% (0.0-3.0); Hemoglobin (Hb) 10.3 g/dL (12.0-16.0); O2 Tension (PaO2), arterial 386.9 mmHg (> 70.0); pH, Arterial 7.45 (7.35-7.45)
[2022-02-23 12:28] LABS: Puncture Site Arterial Line
[2022-02-23 12:29] LABS: Puncture Site Arterial Line
[2022-02-23 12:29] LABS: Puncture Site Arterial Line
[2022-02-23 12:30] LABS: Puncture Site Arterial Line
[2022-02-23] MEDS: Atorvastatin Calcium 40 MG TAB PO SCH (20:12)
[2022-02-23] MEDS: Cefepime 1 GM in Sodium Chloride 0.9% 100 ML IVPB SCH (20:12)
[2022-02-23] MEDS ORDERED: Vancomycin 1.5 GRAM/300 ML BAG 1.5 GM in Premix Bag 1 BAG IVPB SCH (21:00)
[2022-02-24] MEDS: Ondansetron PF 4 MG/2 ML Vial IVP PRN ×3 (04:02→14:22)
[2022-02-24 04:28] LABS: Hemoglobin 9.8 g/dL (12.0-16.0); Mean Corpuscular HGB CONC 31.5 g/dL (32.0-36.0); Mean Corpuscular Volume 79.2 fl (78.0-98.0); Mean Platelet Volume 6.8 fL (7.4-10.4); Platelet Count 354 10x3/uL (130-400); RBC Distribution Width 15.3 % (11.5-14.5); Red Blood Cell (RBC) Count 3.92 mill/uL (4.20-5.40); White Blood Cell (WBC) Count 20.4 10x3/uL (4.8-10.8)
[2022-02-24 04:48] LABS: ALT (SGPT) 15 U/L (8-55); AST (SGOT) 15 U/L (5-34); Alkaline Phosphatase 84 U/L (40-110); Anion Gap 11 mmol/L (10-20); BUN (Urea Nitrogen) 39 mg/dL (9.8-20.1); Bilirubin, Total 0.4 mg/dL (0.2-1.2); Calc. Creatinine Clearance 41 mL/min (70-130); Calcium 9.1 mg/dL (7.8-10.44); Carbon Dioxide 34 mmol/L (23-31); Chloride 94 mmol/L (98-107); Estimated GFR 41; Globulin 3.4 g/dL (2.4-3.5); Glucose 116 mg/dL (83-110); Magnesium 1.9 mg/dL (1.6-2.6); Phosphorus 3.3 mg/dL (2.3-4.7); Potassium 3.5 mmol/L (3.5-5.1); Protein, Total 6.4 g/dL (5.8-8.1); Sodium 135 mmol/L (136-145)
[2022-02-24 05:04] LABS: Band 4 % (5-11); Eosinophils 1 % (0-10); Lymphocytes 12 % (21-51); MDiff Complete? YES; Metamyelocyte 1 % (0-0); Monocytes 12 % (0-10); Myelocyte 2 % (0-0); Neutrophil 68 % (42-75)
[2022-02-24] MEDS: Levothyroxine Sodium 100 MCG TAB PO SCH (05:50)
[2022-02-24] MEDS: Loratadine 10 MG TAB PO SCH (09:26)
[2022-02-24] MEDS: Metoprolol Tartrate 25 MG TAB PO SCH ×2 (09:27→20:26)
[2022-02-24] MEDS: Cefepime 1 GM in Sodium Chloride 0.9% 100 ML IVPB SCH ×2 (09:27→20:25)
[2022-02-24] MEDS: Famotidine 20 MG TAB PO SCH (09:27)
[2022-02-24] MEDS: Polyethylene Glycol 3350 17 GM Packet PO SCH (09:27)
[2022-02-24] MEDS: Clopidogrel Bisulfate 75 MG TAB PO SCH (09:27)
[2022-02-24] MEDS: Docusate 100 MG CAP PO SCH (09:27)
[2022-02-24] MEDS: HYDROcodone/Acetaminophen 5/325 mg Tablet PO PRN ×3 (09:28→20:26)
[2022-02-24] MEDS: Atorvastatin Calcium 40 MG TAB PO SCH (20:26)
[2022-02-24] MEDS ORDERED: Vancomycin 1 GM in Premix Bag 1 BAG IVPB SCH (21:00)
[2022-02-25 04:03] LABS: #Eosinphils 0.7 thou/uL (0.0-0.7); #Lymphocytes 2.4 thou/uL (1.20-3.40); #Monocytes 1.5 thou/uL (0.11-0.59); #Neutrophils 15.2 thou/uL (1.40-6.50); %Basophils 0.2 % (0.0-1.0); %Eosinophils 3.3 % (0.0-10.0); %Lymphocytes 12.3 % (21.0-51.0); %Monocytes 7.6 % (0.0-10.0); %Neutrophils 76.7 % (42.0-75.0); Hemoglobin 9.1 g/dL (12.0-16.0); Mean Corpuscular HGB CONC 31.8 g/dL (32.0-36.0); Mean Corpuscular Hemoglobin 25.1 pg (27.0-31.0); Mean Corpuscular Volume 78.7 fl (78.0-98.0); Mean Platelet Volume 6.9 fL (7.4-10.4); Platelet Count 349 10x3/uL (130-400); RBC Distribution Width 15.4 % (11.5-14.5); Red Blood Cell (RBC) Count 3.61 mill/uL (4.20-5.40); White Blood Cell (WBC) Count 19.8 10x3/uL (4.8-10.8)
[2022-02-25 04:41] LABS: ALT (SGPT) 9 U/L (8-55); AST (SGOT) 15 U/L (5-34); Albumin 2.9 g/dL (3.4-4.8); Alkaline Phosphatase 79 U/L (40-110); Anion Gap 12 mmol/L (10-20); BUN (Urea Nitrogen) 32 mg/dL (9.8-20.1); Bilirubin, Total 0.5 mg/dL (0.2-1.2); Calc. Creatinine Clearance 42 mL/min (70-130); Calcium 9.1 mg/dL (7.8-10.44); Carbon Dioxide 33 mmol/L (23-31); Chloride 94 mmol/L (98-107); Estimated GFR 45; Globulin 3.3 g/dL (2.4-3.5); Glucose 104 mg/dL (83-110); Potassium 3.8 mmol/L (3.5-5.1); Protein, Total 6.2 g/dL (5.8-8.1); Sodium 135 mmol/L (136-145)
[2022-02-25] MEDS: Levothyroxine Sodium 100 MCG TAB PO SCH (05:24)
[2022-02-25] MEDS: Cefepime 1 GM in Sodium Chloride 0.9% 100 ML IVPB SCH (09:15)
[2022-02-25] MEDS: Famotidine 20 MG TAB PO SCH (09:16)
[2022-02-25] MEDS: Polyethylene Glycol 3350 17 GM Packet PO SCH (09:16)
[2022-02-25] MEDS: Docusate 100 MG CAP PO SCH (09:16)
[2022-02-25] MEDS: Loratadine 10 MG TAB PO SCH (09:16)
[2022-02-25] MEDS: Metoprolol Tartrate 25 MG TAB PO SCH (09:16)
[2022-02-25] MEDS: Clopidogrel Bisulfate 75 MG TAB PO SCH (09:16)
[2022-02-25] MEDS: HYDROcodone/Acetaminophen 5/325 mg Tablet PO PRN (11:01)
[2022-02-25 15:47] VITALS: BP 128/62
[2022-02-25 16:38] VITALS: TEMP 98.4
== END 2022-02-25 17:50 | disposition home or self-care (01) | DRG 233 ==
LOC: ERS 02:38 → ERHOLD 06:10 → OBSVTOIN 11:17 → CCU 16:03 → 2NO 02-18 20:02
PROVIDERS: ADMIT Hospitalist; ATTEND Hospitalist
PROC: 4A023N7 Measurement of Cardiac Sampling and Pressure, Left Heart, Percutaneous Approach (ICD-10-PCS; 2022-02-15)
PROC: B211YZZ Fluoroscopy of Multiple Coronary Arteries using Other Contrast (ICD-10-PCS; 2022-02-15)
PROC: B215YZZ Fluoroscopy of Left Heart using Other Contrast (ICD-10-PCS; 2022-02-15)
PROC: 021109W Bypass Coronary Artery, Two Arteries from Aorta with Autologous Venous Tissue, Open Approach (ICD-10-PCS; principal; 2022-02-17)
PROC: 02100K9 Bypass Coronary Artery, One Artery from Left Internal Mammary with Nonautologous Tissue Substitute, Open Approach (ICD-10-PCS; 2022-02-17)
PROC: 06BQ4ZZ Excision of Left Saphenous Vein, Percutaneous Endoscopic Approach (ICD-10-PCS; 2022-02-17)
PROC: 5A1221Z Performance of Cardiac Output, Continuous (ICD-10-PCS; 2022-02-17)
PROC: 02L70CK Occlusion of Left Atrial Appendage with Extraluminal Device, Open Approach (ICD-10-PCS; 2022-02-17)
DX: I21.4 Non-ST elevation (NSTEMI) myocardial infarction (principal); J18.9 Pneumonia, unspecified organism; N17.9 Acute kidney failure, unspecified; J98.11 Atelectasis; I25.110 Atherosclerotic heart disease of native coronary artery with unstable angina pectoris; Z20.822 Contact with and (suspected) exposure to COVID-19; G43.909 Migraine, unspecified, not intractable, without status migrainosus; M19.90 Unspecified osteoarthritis, unspecified site; E06.3 Autoimmune thyroiditis; I10 Essential (primary) hypertension; J45.909 Unspecified asthma, uncomplicated; K21.9 Gastro-esophageal reflux disease without esophagitis; G47.33 Obstructive sleep apnea (adult) (pediatric); R00.1 Bradycardia, unspecified; E11.51 Type 2 diabetes mellitus with diabetic peripheral angiopathy without gangrene; E78.5 Hyperlipidemia, unspecified; I48.0 Paroxysmal atrial fibrillation; E66.9 Obesity, unspecified; Z95.5 Presence of coronary angioplasty implant and graft; Z99.89 Dependence on other enabling machines and devices; Z88.3 Allergy status to other anti-infective agents; Z91.041 Radiographic dye allergy status; Z91.040 Latex allergy status; Z91.013 Allergy to seafood; Z88.2 Allergy status to sulfonamides; Z88.8 Allergy status to other drugs, medicaments and biological substances; Z91.018 Allergy to other foods; Z79.899 Other long term (current) drug therapy; Z79.890 Hormone replacement therapy; Z79.84 Long term (current) use of oral hypoglycemic drugs; Z79.51 Long term (current) use of inhaled steroids; Z79.1 Long term (current) use of non-steroidal anti-inflammatories (NSAID); Z85.828 Personal history of other malignant neoplasm of skin; Z98.51 Tubal ligation status; Z98.890 Other specified postprocedural states; Z82.49 Family history of ischemic heart disease and other diseases of the circulatory system; Z83.6 Family history of other diseases of the respiratory system; Z82.3 Family history of stroke; I25.2 Old myocardial infarction; Z68.30 Body mass index [BMI] 30.0-30.9, adult
CPT/HCPCS: 36415; 36416; 36430; 64633; 64634; 71045; 71250; 80048; 80053; 81001; 82553; 82805; 83735; 84100; 84145; 84439; 84443; 84484; 85025; 85027; 85610; 85730; 86850; 86900; 86901; 87070; 87205; 87811; 93005; 93010; 93458; 93798; 93880; 94002; 94150; 94760; 97139; C1751; C1769; C1776; C1894; J0360; J0692; J1040; J1200; J1644; J1720; J1815; J1885; J1940; J1956; J2001; J2150; J2250; J2270; J2400; J2405; J2440; J2704; J2720; J2930; J3010; J3370; J3475; J3480; J3490; J7050; J7120; J7512; P9047; Q9967; S0017; S0020; S0028; U0002

== ENCOUNTER 2022-03-07 05:33 | Observation (INO) | payer MEDICARE, OTHER ==
[2022-03-07] MEDS ORDERED: Ondansetron PF 4 MG/2 ML Vial ONE (06:01)
[2022-03-07 06:34] LABS: #Basophils 0.1 thou/uL (0.0-0.2); #Eosinphils 1.8 thou/uL (0.0-0.7); #Lymphocytes 1.7 thou/uL (1.20-3.40); #Monocytes 0.8 thou/uL (0.11-0.59); #Neutrophils 9.1 thou/uL (1.40-6.50); %Basophils 0.4 % (0.0-1.0); %Eosinophils 13.5 % (0.0-10.0); %Lymphocytes 12.2 % (21.0-51.0); %Monocytes 6.1 % (0.0-10.0); %Neutrophils 67.8 % (42.0-75.0); Hemoglobin 10.6 g/dL (12.0-16.0); Mean Corpuscular HGB CONC 33.8 g/dL (32.0-36.0); Mean Corpuscular Hemoglobin 26.7 pg (27.0-31.0); Mean Corpuscular Volume 79.2 fl (78.0-98.0); Mean Platelet Volume 7.2 fL (7.4-10.4); Platelet Count 320 10x3/uL (130-400); RBC Distribution Width 15.7 % (11.5-14.5); Red Blood Cell (RBC) Count 3.96 mill/uL (4.20-5.40); White Blood Cell (WBC) Count 13.5 10x3/uL (4.8-10.8)
[2022-03-07 06:54] LABS: ALT (SGPT) 8 U/L (8-55); AST (SGOT) 14 U/L (5-34); Albumin 3.4 g/dL (3.4-4.8); Alkaline Phosphatase 85 U/L (40-110); Anion Gap 16 mmol/L (10-20); BUN (Urea Nitrogen) 26 mg/dL (9.8-20.1); Bilirubin, Total 0.3 mg/dL (0.2-1.2); Calc. Creatinine Clearance 0 mL/min (70-130); Calcium 8.9 mg/dL (7.8-10.44); Carbon Dioxide 21 mmol/L (23-31); Chloride 109 mmol/L (98-107); Estimated GFR 28; Globulin 3.2 g/dL (2.4-3.5); Glucose 101 mg/dL (83-110); Lipase 43 U/L (8-78); Potassium 3.8 mmol/L (3.5-5.1); Protein, Total 6.6 g/dL (5.8-8.1); Sodium 142 mmol/L (136-145)
[2022-03-07 07:16] LABS: CKMB 1.4 ng/mL (0-6.6)
[2022-03-07 08:42] LABS: SARS-CoV-2 NAA Rapid Test Not Detected (NotDetected)
[2022-03-07 10:09] LABS: Troponin I 0.073 ng/mL (< 0.028)
[2022-03-07] MEDS ORDERED: Lactated Ringer's 500 ML IV SCH (10:15)
[2022-03-07 12:37] VITALS: BMI 30.1
[2022-03-07 13:26] LABS: Troponin I 0.051 ng/mL (< 0.028)
[2022-03-07] MEDS: Mometasone 200 MCG/Formoterol 5 MCG 120 PUFF INHALER INH SCH (18:36)
[2022-03-07] MEDS: Metoprolol Tartrate 25 MG TAB PO SCH (20:47)
[2022-03-07] MEDS ORDERED: Atorvastatin Calcium 40 MG TAB PO SCH (21:00)
[2022-03-07] MEDS ORDERED: Acetaminophen 325 MG TAB PO PRN (21:45)
[2022-03-08 05:29] LABS: Band 1 % (5-11); Eosinophils 27 % (0-10); Hemoglobin 9.6 g/dL (12.0-16.0); Lymphocytes 19 % (21-51); MDiff Complete? YES; Mean Corpuscular HGB CONC 31.4 g/dL (32.0-36.0); Mean Corpuscular Hemoglobin 24.9 pg (27.0-31.0); Mean Corpuscular Volume 79.5 fl (78.0-98.0); Mean Platelet Volume 7.5 fL (7.4-10.4); Monocytes 6 % (0-10); Neutrophil 47 % (42-75); Platelet Count 270 10x3/uL (130-400); RBC Distribution Width 15.6 % (11.5-14.5); Red Blood Cell (RBC) Count 3.85 mill/uL (4.20-5.40)
[2022-03-08 06:00] LABS: Anion Gap 10 mmol/L (10-20); BUN (Urea Nitrogen) 23 mg/dL (9.8-20.1); Calc. Creatinine Clearance 35 mL/min (70-130); Carbon Dioxide 25 mmol/L (23-31); Chloride 105 mmol/L (98-107); Estimated GFR 37; Glucose 97 mg/dL (83-110); Sodium 136 mmol/L (136-145)
[2022-03-08] MEDS ORDERED: Levothyroxine Sodium 100 MCG TAB PO SCH (06:00)
[2022-03-08] MEDS: Mometasone 200 MCG/Formoterol 5 MCG 120 PUFF INHALER INH SCH (07:40)
[2022-03-08] MEDS: Metoprolol Tartrate 25 MG TAB PO SCH (08:16)
[2022-03-08] MEDS ORDERED: Hydrochlorothiazide 25 MG TAB PO SCH (09:00)
[2022-03-08] MEDS ORDERED: Clopidogrel Bisulfate 75 MG TAB PO SCH (09:00)
[2022-03-08 09:54] LABS: Iron 48 ug/dL (50-170); Iron Binding Capacity, Total 278 mcg/dL (265-497)
[2022-03-08 11:32] VITALS: BP 108/51; TEMP 98.4
== END 2022-03-08 12:03 | disposition home or self-care (01) ==
LOC: ERS 05:33 → ERHOLD 07:49 → 2SW 12:28
PROVIDERS: ADMIT Internal Medicine; ATTEND Internal Medicine
DX: A08.39 Other viral enteritis (principal); I25.10 Atherosclerotic heart disease of native coronary artery without angina pectoris; E78.5 Hyperlipidemia, unspecified; I10 Essential (primary) hypertension; N17.9 Acute kidney failure, unspecified; R77.8 Other specified abnormalities of plasma proteins; J90 Pleural effusion, not elsewhere classified; K62.5 Hemorrhage of anus and rectum; M81.0 Age-related osteoporosis without current pathological fracture; E03.9 Hypothyroidism, unspecified; M19.90 Unspecified osteoarthritis, unspecified site; K21.9 Gastro-esophageal reflux disease without esophagitis; Z85.828 Personal history of other malignant neoplasm of skin; Z79.01 Long term (current) use of anticoagulants; Z79.02 Long term (current) use of antithrombotics/antiplatelets; Z79.84 Long term (current) use of oral hypoglycemic drugs; Z79.890 Hormone replacement therapy; Z79.899 Other long term (current) drug therapy; Z88.0 Allergy status to penicillin; Z88.2 Allergy status to sulfonamides; Z88.8 Allergy status to other drugs, medicaments and biological substances; Z91.013 Allergy to seafood; Z91.018 Allergy to other foods; Z91.040 Latex allergy status; Z91.041 Radiographic dye allergy status; Z95.1 Presence of aortocoronary bypass graft; Z95.5 Presence of coronary angioplasty implant and graft; Z20.822 Contact with and (suspected) exposure to COVID-19
CPT/HCPCS: 71045; 80048; 80053; 82553; 82728; 82962 ×2; 83540; 83550; 83690; 84484 ×2; 85025 ×2; 93005; 94640 ×2; 96374; 99285; G0378 ×3; U0002; 36415; 36416; J2405; J7120

== ENCOUNTER 2022-05-11 09:53 | Emergency (ER) | payer MEDICARE, OTHER ==
[2022-05-11 11:39] LABS: SARS-CoV-2 NAA Rapid Test Not Detected (NotDetected)
[2022-05-11 11:45] LABS: #Eosinphils 0.3 thou/uL (0.0-0.7); #Lymphocytes 1.5 thou/uL (1.20-3.40); #Monocytes 1.1 thou/uL (0.11-0.59); #Neutrophils 12.2 thou/uL (1.40-6.50); %Basophils 0.3 % (0.0-1.0); %Eosinophils 1.8 % (0.0-10.0); %Lymphocytes 9.7 % (21.0-51.0); %Monocytes 7.4 % (0.0-10.0); %Neutrophils 80.8 % (42.0-75.0); Mean Corpuscular Hemoglobin 24.4 pg (27.0-31.0); Mean Corpuscular Volume 78.7 fl (78.0-98.0); Mean Platelet Volume 8.2 fL (7.4-10.4); Platelet Count 288 10x3/uL (130-400); RBC Distribution Width 15.9 % (11.5-14.5); Red Blood Cell (RBC) Count 4.51 mill/uL (4.20-5.40); White Blood Cell (WBC) Count 15.1 10x3/uL (4.8-10.8)
[2022-05-11 11:57] LABS: INR-International Normal Ratio 1.2; Prothrombin Time 15.4 sec (12.0-14.7)
[2022-05-11 12:22] LABS: ALT (SGPT) 9 U/L (8-55); AST (SGOT) 15 U/L (5-34); Albumin 3.6 g/dL (3.4-4.8); Alkaline Phosphatase 77 U/L (40-110); Anion Gap 14 mmol/L (10-20); BUN (Urea Nitrogen) 22 mg/dL (9.8-20.1); Bilirubin, Total 0.5 mg/dL (0.2-1.2); Calc. Creatinine Clearance 0 mL/min (70-130); Carbon Dioxide 24 mmol/L (23-31); Chloride 103 mmol/L (98-107); Estimated GFR 48; Globulin 4.2 g/dL (2.4-3.5); Glucose 102 mg/dL (83-110); Lipase 55 U/L (8-78); Potassium 4.2 mmol/L (3.5-5.1); Protein, Total 7.8 g/dL (5.8-8.1); Sodium 137 mmol/L (136-145)
== END 2022-05-11 13:23 | disposition home or self-care (01) ==
LOC: ERS 09:53
DX: J18.1 Lobar pneumonia, unspecified organism (principal); M25.511 Pain in right shoulder; E03.9 Hypothyroidism, unspecified; E78.5 Hyperlipidemia, unspecified; K21.9 Gastro-esophageal reflux disease without esophagitis; E11.9 Type 2 diabetes mellitus without complications; Z20.822 Contact with and (suspected) exposure to COVID-19; Z79.899 Other long term (current) drug therapy
CPT/HCPCS: 0240U; 71045; 80053; 83605; 83690; 84484; 85025; 85610; 85730; 87040; 93005; 96374

== ENCOUNTER 2022-07-06 08:06 | Observation (INO) | payer MEDICARE, OTHER ==
[2022-07-06 08:47] LABS: #Basophils 0.1 thou/uL (0.0-0.2); #Eosinphils 0.4 thou/uL (0.0-0.7); #Lymphocytes 1.8 thou/uL (1.20-3.40); #Neutrophils 9.5 thou/uL (1.40-6.50); %Basophils 0.9 % (0.0-1.0); %Eosinophils 3.1 % (0.0-10.0); %Lymphocytes 14.1 % (21.0-51.0); %Monocytes 7.9 % (0.0-10.0); Hemoglobin 13.5 g/dL (12.0-16.0); Mean Corpuscular HGB CONC 31.5 g/dL (32.0-36.0); Mean Corpuscular Hemoglobin 23.8 pg (27.0-31.0); Mean Corpuscular Volume 75.5 fl (78.0-98.0); Mean Platelet Volume 9.1 fL (7.4-10.4); Platelet Count 307 10x3/uL (130-400); RBC Distribution Width 17.7 % (11.5-14.5); Red Blood Cell (RBC) Count 5.67 mill/uL (4.20-5.40); White Blood Cell (WBC) Count 12.8 10x3/uL (4.8-10.8)
[2022-07-06 09:08] LABS: ALT (SGPT) 45 U/L (8-55); AST (SGOT) 53 U/L (5-34); Albumin 3.6 g/dL (3.4-4.8); Alkaline Phosphatase 98 U/L (40-110); Anion Gap 14 mmol/L (10-20); BUN (Urea Nitrogen) 30 mg/dL (9.8-20.1); Bilirubin, Total 0.3 mg/dL (0.2-1.2); Calc. Creatinine Clearance 0 mL/min (70-130); Calcium 9.9 mg/dL (7.8-10.44); Carbon Dioxide 23 mmol/L (23-31); Chloride 103 mmol/L (98-107); Estimated GFR 38; Globulin 4.8 g/dL (2.4-3.5); Glucose 99 mg/dL (83-110); Lipase 102 U/L (8-78); Magnesium 1.9 mg/dL (1.6-2.6); Potassium 3.9 mmol/L (3.5-5.1); Protein, Total 8.4 g/dL (5.8-8.1); Sodium 136 mmol/L (136-145)
[2022-07-06] MEDS ORDERED: Ketorolac Tromethamine 30 MG/ML VIAL ONE (09:31)
[2022-07-06] MEDS ORDERED: Nitroglycerin 0.4 MG TAB (25 Tab Bottle) SL PRN (11:41)
[2022-07-06 12:36] LABS: Troponin I Less than 0.010 ng/mL (< 0.028)
[2022-07-06 14:50] VITALS: BMI 29.7
[2022-07-06] MEDS: Sodium Chloride 0.9% 1,000 ML IV SCH (15:08)
[2022-07-06] MEDS: Nitroglycerin 2% Ointment 1 INCH/1 GM Packet TOP SCH ×3 (15:08→22:23)
[2022-07-06 15:10] LABS: Magnesium 1.9 mg/dL (1.6-2.6)
[2022-07-06 15:14] LABS: Troponin I 0.011 ng/mL (< 0.028)
[2022-07-06] MEDS ORDERED: Cyclobenzaprine 10 MG TAB PO PRN (20:56)
[2022-07-06] MEDS ORDERED: Ipratropium/Albuterol 3 ML NEB NEB PRN (20:56)
[2022-07-06] MEDS ORDERED: Artificial Tear Sol 15 ML BOT EA EYE PRN (21:00)
[2022-07-06] MEDS ORDERED: Atorvastatin Calcium 40 MG TAB PO SCH (21:00)
[2022-07-06] MEDS ORDERED: Amlodipine 5 MG TAB PO SCH (21:00)
[2022-07-06] MEDS: traMADol HCl 50 MG TAB PO PRN (21:41)
[2022-07-06] MEDS: Metoprolol Tartrate 50 MG TAB PO SCH (21:42)
[2022-07-07] MEDS: Sodium Chloride 0.9% 1,000 ML IV SCH (03:06)
[2022-07-07 04:49] LABS: #Basophils 0.1 thou/uL (0.0-0.2); #Eosinphils 0.6 thou/uL (0.0-0.7); #Lymphocytes 2.2 thou/uL (1.20-3.40); #Monocytes 0.9 thou/uL (0.11-0.59); #Neutrophils 7.9 thou/uL (1.40-6.50); %Basophils 0.6 % (0.0-1.0); %Eosinophils 5.1 % (0.0-10.0); %Neutrophils 67.3 % (42.0-75.0); Hemoglobin 10.5 g/dL (12.0-16.0); Mean Corpuscular HGB CONC 30.7 g/dL (32.0-36.0); Mean Corpuscular Hemoglobin 23.2 pg (27.0-31.0); Mean Corpuscular Volume 75.5 fl (78.0-98.0); Mean Platelet Volume 9.3 fL (7.4-10.4); Platelet Count 240 10x3/uL (130-400); RBC Distribution Width 17.5 % (11.5-14.5); Red Blood Cell (RBC) Count 4.54 mill/uL (4.20-5.40); White Blood Cell (WBC) Count 11.8 10x3/uL (4.8-10.8)
[2022-07-07 05:12] LABS: Anion Gap 9 mmol/L (10-20); BUN (Urea Nitrogen) 28 mg/dL (9.8-20.1); Calc. Creatinine Clearance 46 mL/min (70-130); Calcium 8.8 mg/dL (7.8-10.44); Carbon Dioxide 24 mmol/L (23-31); Cardiac Risk 2.6 (Less than 4.5); Chloride 106 mmol/L (98-107); Cholesterol 92 mg/dl (< 200 Desired); Estimated GFR 53; Glucose 96 mg/dL (83-110); HDL Cholesterol 35 mg/dL (>60 Neg Risk); LDL Cholesterol, Calculated 43 mg/dL; Potassium 3.6 mmol/L (3.5-5.1); Sodium 135 mmol/L (136-145); Triglycerides 71 mg/dL (Less than 150)
[2022-07-07] MEDS ORDERED: Levothyroxine Sodium 100 MCG TAB PO SCH (06:00)
[2022-07-07] MEDS: Nitroglycerin 2% Ointment 1 INCH/1 GM Packet TOP SCH (06:52)
[2022-07-07] MEDS ORDERED: Acetaminophen 325 MG TAB PO PRN (07:59)
[2022-07-07] MEDS ORDERED: Folic Acid 1 MG TAB PO SCH (09:00)
[2022-07-07] MEDS ORDERED: Clopidogrel Bisulfate 75 MG TAB PO SCH (09:00)
[2022-07-07] MEDS ORDERED: Montelukast Sodium 10 mg Tablet PO SCH (09:00)
[2022-07-07] MEDS ORDERED: Losartan 25 MG TAB PO SCH (09:00)
[2022-07-07] MEDS ORDERED: Furosemide 40 MG/4 ML VIAL SLOW IVP SCH (09:15)
[2022-07-07] MEDS: Metoprolol Tartrate 50 MG TAB PO SCH (09:34)
[2022-07-07 12:32] VITALS: BP 140/70; TEMP 98.1
[2022-07-07] MEDS: traMADol HCl 50 MG TAB PO PRN (13:05)
== END 2022-07-07 15:15 | disposition home or self-care (01) ==
LOC: ERS 08:06 → ERHOLD 12:20 → 2SW 13:59
PROVIDERS: ADMIT Internal Medicine; ATTEND Internal Medicine
DX: R07.89 Other chest pain (principal); N17.9 Acute kidney failure, unspecified; I13.0 Hypertensive heart and chronic kidney disease with heart failure and stage 1 through stage 4 chronic kidney disease, or unspecified chronic kidney disease; E11.22 Type 2 diabetes mellitus with diabetic chronic kidney disease; N18.9 Chronic kidney disease, unspecified; I50.32 Chronic diastolic (congestive) heart failure; I25.10 Atherosclerotic heart disease of native coronary artery without angina pectoris; I25.2 Old myocardial infarction; E78.5 Hyperlipidemia, unspecified; E55.9 Vitamin D deficiency, unspecified; E03.9 Hypothyroidism, unspecified; J45.909 Unspecified asthma, uncomplicated; M54.2 Cervicalgia; M25.511 Pain in right shoulder; R79.9 Abnormal finding of blood chemistry, unspecified; Z86.16 Personal history of COVID-19; Z20.822 Contact with and (suspected) exposure to COVID-19; Z88.0 Allergy status to penicillin; Z88.1 Allergy status to other antibiotic agents; Z88.2 Allergy status to sulfonamides; Z88.6 Allergy status to analgesic agent; Z88.8 Allergy status to other drugs, medicaments and biological substances; Z91.013 Allergy to seafood; Z91.018 Allergy to other foods; Z91.040 Latex allergy status; Z91.041 Radiographic dye allergy status; Z95.1 Presence of aortocoronary bypass graft; Z79.84 Long term (current) use of oral hypoglycemic drugs; Z79.02 Long term (current) use of antithrombotics/antiplatelets; Z79.890 Hormone replacement therapy; Z79.899 Other long term (current) drug therapy; Z95.5 Presence of coronary angioplasty implant and graft
CPT/HCPCS: 71045; 78451; 80048; 80061; 83690; 83735; 83880; 84484 ×2; 85025; 85379; 93005; 94760; 96374; 96376; 99285; A9540; G0378 ×3; U0003; U0005; 36415; 80053; 84443; J1885; J1940; J7050

== ENCOUNTER 2022-07-14 14:19 | Outpatient (CLI) | payer MEDICARE, OTHER | END 2022-07-14 14:20 | disposition home or self-care (01) | LOC: BICMAMMO 14:19 | PROVIDERS: ATTEND Internal Medicine Rheumatology | DX: Z13.820 Encounter for screening for osteoporosis (principal); Z78.0 Asymptomatic menopausal state; M85.851 Other specified disorders of bone density and structure, right thigh | CPT/HCPCS: 77080 ==

== ENCOUNTER 2022-08-20 07:52 | Observation (INO) | payer MEDICARE, OTHER ==
[2022-08-20 08:48] LABS: #Basophils 0.1 thou/uL (0.0-0.2); #Eosinphils 0.4 thou/uL (0.0-0.7); #Lymphocytes 2.4 thou/uL (1.20-3.40); #Monocytes 1.2 thou/uL (0.11-0.59); #Neutrophils 10.6 thou/uL (1.40-6.50); %Basophils 0.5 % (0.0-1.0); %Eosinophils 2.8 % (0.0-10.0); %Lymphocytes 16.3 % (21.0-51.0); %Monocytes 8.1 % (0.0-10.0); %Neutrophils 72.3 % (42.0-75.0); Hemoglobin 11.7 g/dL (12.0-16.0); Mean Corpuscular HGB CONC 33.8 g/dL (32.0-36.0); Mean Corpuscular Hemoglobin 26.1 pg (27.0-31.0); Mean Corpuscular Volume 77.3 fl (78.0-98.0); Mean Platelet Volume 8.2 fL (7.4-10.4); Platelet Count 280 10x3/uL (130-400); RBC Distribution Width 18.3 % (11.5-14.5); Red Blood Cell (RBC) Count 4.49 mill/uL (4.20-5.40); White Blood Cell (WBC) Count 14.6 10x3/uL (4.8-10.8)
[2022-08-20 09:08] LABS: ALT (SGPT) 11 U/L (8-55); AST (SGOT) 24 U/L (5-34); Albumin 3.6 g/dL (3.4-4.8); Alkaline Phosphatase 63 U/L (40-110); Anion Gap 15 mmol/L (10-20); BUN (Urea Nitrogen) 21 mg/dL (9.8-20.1); Bilirubin, Total 0.4 mg/dL (0.2-1.2); Calc. Creatinine Clearance 0 mL/min (70-130); Calcium 9.8 mg/dL (7.8-10.44); Carbon Dioxide 24 mmol/L (23-31); Chloride 100 mmol/L (98-107); Estimated GFR 47; Glucose 88 mg/dL (83-110); Potassium 4.8 mmol/L (3.5-5.1); Protein, Total 8.6 g/dL (5.8-8.1); Sodium 134 mmol/L (136-145)
[2022-08-20 10:00] LABS: Bilirubin Negative (Negative); Blood, Urine Negative (Negative); Clarity Clear (Clear); Glucose, Urine (Dipstick) Normal (Negative); Ketone, Urine Negative (Negative); Leukocyte Negative Leu/uL (Negative); Nitrite Negative (Negative); Protein, Urine (Dipstick) Negative (Neg-Trace); Specific Gravity, Urine 1.014 (1.002-1.036); Urobilinogen Normal mg/dL (Less than 2)
[2022-08-20] MEDS ORDERED: Ketorolac Tromethamine 30 MG/ML VIAL ONE (10:05)
[2022-08-20 11:23] LABS: Magnesium 1.9 mg/dL (1.6-2.6)
[2022-08-20] MEDS ORDERED: Electrolyte Replacement Protocol FS PRN (11:45)
[2022-08-20] MEDS ORDERED: Electrolyte Replacement Protocol 1 EACH FS SCH (11:45)
[2022-08-20] MEDS ORDERED: Nitroglycerin 0.4 MG TAB (25 Tab Bottle) SL PRN (12:15)
[2022-08-20] MEDS ORDERED: Calcium Carbonate 500 MG ChewTAB PO PRN (12:18)
[2022-08-20] MEDS ORDERED: Acetaminophen 325 MG TAB PO PRN (12:18)
[2022-08-20] MEDS ORDERED: Ondansetron PF 4 MG/2 ML Vial IVP PRN (12:18)
[2022-08-20] MEDS ORDERED: Ondansetron ODT 4 MG TAB PO PRN (12:18)
[2022-08-20] MEDS ORDERED: Senokot S 8.6-50 MG TAB PO PRN (12:18)
[2022-08-20] MEDS ORDERED: Clopidogrel Bisulfate 75 MG TAB PO SCH (12:30)
[2022-08-20] MEDS ORDERED: Albuterol 200 PUFF (6.7GM INHALER) INH PRN (12:36)
[2022-08-20] MEDS ORDERED: Furosemide 20 MG TAB PO PRN (12:40)
[2022-08-20 12:41] VITALS: BMI 29.0
[2022-08-20] MEDS ORDERED: Artificial Tear Sol 15 ML BOT EA EYE PRN (12:41)
[2022-08-20 13:11] LABS: Troponin I 0.015 ng/mL (< 0.028)
[2022-08-20] MEDS ORDERED: Magnesium 2 GM/50 ML(in water) 2 GM in Premix Bag 1 BAG IVPB SCH (14:00)
[2022-08-20 15:26] LABS: Troponin I Less than 0.010 ng/mL (< 0.028)
[2022-08-20] MEDS: HYDROcodone/Acetaminophen 5/325 mg Tablet PO PRN ×2 (15:37→23:37)
[2022-08-20] MEDS ORDERED: metFORMIN 500 MG TAB PO SCH (17:00)
[2022-08-20] MEDS ORDERED: Furosemide 40 MG/4 ML VIAL SLOW IVP SCH (17:30)
[2022-08-20] MEDS: Mometasone 200 MCG/Formoterol 5 MCG 120 PUFF INHALER INH SCH (18:46)
[2022-08-20] MEDS: CeleCOXIB 100 MG CAP PO SCH (20:26)
[2022-08-20] MEDS: Metoprolol Tartrate 25 MG TAB PO SCH (20:27)
[2022-08-20] MEDS: Heparin 5,000 UNITS/ML VIAL SC SCH (20:27)
[2022-08-20] MEDS ORDERED: Atorvastatin Calcium 40 MG TAB PO SCH (21:00)
[2022-08-20] MEDS ORDERED: hydrOXYzine 10 MG TAB PO SCH (21:00)
[2022-08-21 04:58] LABS: Anion Gap 13 mmol/L (10-20); BUN (Urea Nitrogen) 23 mg/dL (9.8-20.1); Calc. Creatinine Clearance 36 mL/min (70-130); Calcium 8.7 mg/dL (7.8-10.44); Carbon Dioxide 25 mmol/L (23-31); Chloride 99 mmol/L (98-107); Estimated GFR 41; Glucose 89 mg/dL (83-110); Potassium 4.2 mmol/L (3.5-5.1); Sodium 133 mmol/L (136-145)
[2022-08-21 05:02] LABS: #Basophils 0.1 thou/uL (0.0-0.2); #Eosinphils 0.8 thou/uL (0.0-0.7); #Lymphocytes 3.1 thou/uL (1.20-3.40); #Monocytes 0.9 thou/uL (0.11-0.59); #Neutrophils 5.7 thou/uL (1.40-6.50); %Basophils 0.7 % (0.0-1.0); %Eosinophils 7.5 % (0.0-10.0); %Lymphocytes 29.4 % (21.0-51.0); %Monocytes 8.2 % (0.0-10.0); %Neutrophils 54.3 % (42.0-75.0); Mean Corpuscular HGB CONC 30.3 g/dL (32.0-36.0); Mean Corpuscular Hemoglobin 23.6 pg (27.0-31.0); Mean Corpuscular Volume 77.9 fl (78.0-98.0); Mean Platelet Volume 8.6 fL (7.4-10.4); Platelet Count 251 10x3/uL (130-400); Red Blood Cell (RBC) Count 4.23 mill/uL (4.20-5.40); White Blood Cell (WBC) Count 10.5 10x3/uL (4.8-10.8)
[2022-08-21] MEDS ORDERED: Levothyroxine Sodium 100 MCG TAB PO SCH (06:00)
[2022-08-21] MEDS: HYDROcodone/Acetaminophen 5/325 mg Tablet PO PRN (06:09)
[2022-08-21] MEDS: Mometasone 200 MCG/Formoterol 5 MCG 120 PUFF INHALER INH SCH (07:35)
[2022-08-21] MEDS ORDERED: Magnesium 2 GM/50 ML(in water) 2 GM in Premix Bag 1 BAG IVPB SCH (08:00)
[2022-08-21] MEDS: Heparin 5,000 UNITS/ML VIAL SC SCH (08:17)
[2022-08-21] MEDS: Metoprolol Tartrate 25 MG TAB PO SCH (08:19)
[2022-08-21 08:31] VITALS: BP 164/73; TEMP 99.1
[2022-08-21] MEDS: CeleCOXIB 100 MG CAP PO SCH (08:52)
[2022-08-21] MEDS ORDERED: Montelukast Sodium 10 mg Tablet PO SCH (09:00)
[2022-08-21] MEDS ORDERED: Hydrochlorothiazide 25 MG TAB PO SCH (09:00)
[2022-08-21] MEDS ORDERED: Folic Acid 1 MG TAB PO SCH (09:00)
[2022-08-21] MEDS ORDERED: Cholecalciferol 1,000 UNITS (25 MCG) TAB PO SCH (09:00)
[2022-08-21] MEDS ORDERED: Clopidogrel Bisulfate 75 MG TAB PO SCH (09:00)
[2022-08-21] MEDS ORDERED: Multivitamin W/ Minerals 1 TAB PO SCH (09:00)
[2022-08-21] MEDS ORDERED: Losartan 25 MG TAB PO SCH (09:00)
[2022-08-21] MEDS ORDERED: Loratadine 10 MG TAB PO SCH (09:00)
== END 2022-08-21 11:48 | disposition home or self-care (01) ==
LOC: ERS 07:52 → 2SW 10:21
PROVIDERS: ADMIT Internal Medicine; ATTEND Internal Medicine
DX: R07.9 Chest pain, unspecified (principal); I25.10 Atherosclerotic heart disease of native coronary artery without angina pectoris; G89.29 Other chronic pain; M79.605 Pain in left leg; E78.5 Hyperlipidemia, unspecified; I13.0 Hypertensive heart and chronic kidney disease with heart failure and stage 1 through stage 4 chronic kidney disease, or unspecified chronic kidney disease; E11.22 Type 2 diabetes mellitus with diabetic chronic kidney disease; N18.30 Chronic kidney disease, stage 3 unspecified; I50.32 Chronic diastolic (congestive) heart failure; D63.1 Anemia in chronic kidney disease; M06.9 Rheumatoid arthritis, unspecified; E03.9 Hypothyroidism, unspecified; K21.9 Gastro-esophageal reflux disease without esophagitis; E87.1 Hypo-osmolality and hyponatremia; Z79.02 Long term (current) use of antithrombotics/antiplatelets; Z79.84 Long term (current) use of oral hypoglycemic drugs; Z79.890 Hormone replacement therapy; Z79.899 Other long term (current) drug therapy; Z88.0 Allergy status to penicillin; Z88.2 Allergy status to sulfonamides; Z88.6 Allergy status to analgesic agent; Z88.8 Allergy status to other drugs, medicaments and biological substances; Z91.013 Allergy to seafood; Z91.040 Latex allergy status; Z91.041 Radiographic dye allergy status; Z95.1 Presence of aortocoronary bypass graft; Z95.5 Presence of coronary angioplasty implant and graft
CPT/HCPCS: 36415; 71045; 80048; 80053; 81003; 83735; 83880; 84484; 85025; 87040; 87086; 87804; 93005; 94760; 96374; 96375; 96376; G0378; J1644; J1885; J1940; J3475

== ENCOUNTER 2022-09-27 08:00 | Outpatient (CLI) | payer MEDICARE, OTHER | END 2022-09-27 08:01 | disposition home or self-care (01) | LOC: BICMRI 08:00 | PROVIDERS: ATTEND Specialist | DX: M47.27 Other spondylosis with radiculopathy, lumbosacral region (principal); M47.816 Spondylosis without myelopathy or radiculopathy, lumbar region; M51.26 Other intervertebral disc displacement, lumbar region; M79.605 Pain in left leg | CPT/HCPCS: 72148 ==

== ENCOUNTER 2022-10-17 16:07 | Outpatient (CLI) | payer MEDICARE, OTHER | END 2022-10-17 16:08 | disposition home or self-care (01) | LOC: RAD 16:07 | PROVIDERS: ATTEND Neurological Surgery | DX: M47.26 Other spondylosis with radiculopathy, lumbar region (principal); M47.817 Spondylosis without myelopathy or radiculopathy, lumbosacral region; Z98.890 Other specified postprocedural states | CPT/HCPCS: 72120 ==

== ENCOUNTER 2023-01-19 13:26 | Outpatient (CLI) | payer MEDICARE, OTHER | END 2023-01-19 13:27 | disposition home or self-care (01) | LOC: BICCT 13:26 | PROVIDERS: ATTEND Internal Medicine Critical Care Medicine | DX: J84.89 Other specified interstitial pulmonary diseases (principal); J47.9 Bronchiectasis, uncomplicated | CPT/HCPCS: 71250 ==

== ENCOUNTER 2023-02-09 11:25 | Outpatient (CLI) | payer MEDICARE, OTHER | END 2023-02-09 11:26 | disposition home or self-care (01) | LOC: BICRAD 11:25 | PROVIDERS: ATTEND Internal Medicine Cardiovascular Disease | DX: R05.9 Cough, unspecified (principal); R79.89 Other specified abnormal findings of blood chemistry; I51.7 Cardiomegaly; J98.4 Other disorders of lung; J47.9 Bronchiectasis, uncomplicated; I50.32 Chronic diastolic (congestive) heart failure; Z79.899 Other long term (current) drug therapy | CPT/HCPCS: 71046; 87070; 87086; 87205 ==

== ENCOUNTER 2023-06-15 18:34 | Inpatient (IN) | payer MEDICARE, OTHER ==
[2023-06-15 19:10] LABS: #Basophils 0.1 thou/uL (0.0-0.2); #Eosinphils 0.2 thou/uL (0.0-0.7); #Neutrophils 11.1 thou/uL (1.40-6.50); %Basophils 0.5 % (0.0-1.0); %Lymphocytes 14.2 % (21.0-51.0); %Monocytes 7.2 % (0.0-10.0); %Neutrophils 76.5 % (42.0-75.0); Hematocrit 49.1 % (36.0-47.0); Hemoglobin 15.1 g/dL (12.0-16.0); Mean Corpuscular HGB CONC 30.8 g/dL (32.0-36.0); Mean Corpuscular Hemoglobin 25.2 pg (27.0-31.0); Mean Corpuscular Volume 81.8 fl (78.0-98.0); Mean Platelet Volume 9.4 fL (7.4-10.4); Platelet Count 251 10x3/uL (130-400); White Blood Cell (WBC) Count 14.5 10x3/uL (4.8-10.8)
[2023-06-15 19:44] LABS: Troponin I 0.021 ng/mL (< 0.028)
[2023-06-15 19:48] LABS: ALT (SGPT) 28 U/L (8-55); AST (SGOT) 29 U/L (5-34); Albumin 3.8 g/dL (3.4-4.8); Alkaline Phosphatase 91 U/L (40-110); Anion Gap 12 mmol/L (10-20); BUN (Urea Nitrogen) 35 mg/dL (9.8-20.1); Bilirubin, Total 0.5 mg/dL (0.2-1.2); Calc. Creatinine Clearance 0 mL/min (70-130); Calcium 9.3 mg/dL (7.8-10.44); Carbon Dioxide 28 mmol/L (23-31); Chloride 105 mmol/L (98-107); Estimated GFR 44; Globulin 3.5 g/dL (2.4-3.5); Glucose 94 mg/dL (83-110); Potassium 5.2 mmol/L (3.5-5.1); Protein, Total 7.3 g/dL (5.8-8.1); Sodium 140 mmol/L (136-145)
[2023-06-15] MEDS ORDERED: Furosemide 40 MG (4 mL) VIAL ONE (20:43)
[2023-06-15 21:41] LABS: Influenza A by NAA Not Detected (NotDetected); Influenza B by NAA Not Detected (NotDetected); SARS-CoV-2 NAA Rapid Test Not Detected (NotDetected)
[2023-06-15] MEDS ORDERED: Ondansetron PF 4 MG/2 ML Vial IVP PRN (22:00)
[2023-06-15] MEDS ORDERED: Acetaminophen 325 MG TAB PO PRN ×2 (22:00→22:36)
[2023-06-15] MEDS ORDERED: Ondansetron ODT 4 MG TAB SL PRN (22:00)
[2023-06-15] MEDS ORDERED: Ipratropium/Albuterol 3 ML NEB NEB PRN (22:32)
[2023-06-15] MEDS ORDERED: Calcium Carbonate 500 MG ChewTAB PO PRN (22:36)
[2023-06-15] MEDS ORDERED: Ondansetron ODT 4 MG TAB PO PRN (22:36)
[2023-06-15 23:00] VITALS: BMI 28.1
[2023-06-16 05:30] LABS: #Basophils 0.1 thou/uL (0.0-0.2); #Eosinphils 0.4 thou/uL (0.0-0.7); #Monocytes 1.2 thou/uL (0.11-0.59); #Neutrophils 9.6 thou/uL (1.40-6.50); %Basophils 0.6 % (0.0-1.0); %Eosinophils 3.1 % (0.0-10.0); %Lymphocytes 20.9 % (21.0-51.0); %Monocytes 8.3 % (0.0-10.0); %Neutrophils 66.5 % (42.0-75.0); Hematocrit 45.2 % (36.0-47.0); Mean Corpuscular Hemoglobin 24.8 pg (27.0-31.0); Mean Corpuscular Volume 80.1 fl (78.0-98.0); Mean Platelet Volume 9.5 fL (7.4-10.4); Platelet Count 240 10x3/uL (130-400); RBC Distribution Width 19.4 % (11.5-14.5); Red Blood Cell (RBC) Count 5.64 mill/uL (4.20-5.40); White Blood Cell (WBC) Count 14.4 10x3/uL (4.8-10.8)
[2023-06-16] MEDS: Furosemide 40 MG (4 mL) VIAL SLOW IVP SCH (05:34)
[2023-06-16 06:12] LABS: Anion Gap 14 mmol/L (10-20); BUN (Urea Nitrogen) 35 mg/dL (9.8-20.1); Calc. Creatinine Clearance 41 mL/min (70-130); Carbon Dioxide 28 mmol/L (23-31); Chloride 103 mmol/L (98-107); Estimated GFR 48; Glucose 149 mg/dL (83-110); Magnesium 2.3 mg/dL (1.6-2.6); Potassium 4.1 mmol/L (3.5-5.1); Sodium 141 mmol/L (136-145)
[2023-06-16] MEDS: Hydrochlorothiazide 25 MG TAB PO SCH (08:36)
[2023-06-16] MEDS: Enoxaparin 30 MG (0.3 mL) SYRINGE SC SCH (08:44)
[2023-06-16] MEDS: cycloSPORINE 0.05% Ophthalmic Droperette EA EYE SCH (08:44)
[2023-06-16] MEDS: Folic Acid 1 MG TAB PO SCH (08:45)
[2023-06-16] MEDS: Nebivolol HCl 5 MG TAB PO SCH (08:45)
[2023-06-16] MEDS: Famotidine 20 MG TAB PO SCH (08:45)
[2023-06-16] MEDS: Hydroxychloroquine Sulfate 200 MG TAB PO SCH (08:45)
[2023-06-16] MEDS ORDERED: PRASTERONE 25 MG PO SCH (09:00)
[2023-06-16] MEDS: methylPREDNISolone Sod Succ 40 MG VIAL IVP SCH (12:23)
[2023-06-16] MEDS: Ipratropium/Albuterol 3 ML NEB NEB SCH ×2 (14:01→19:17)
[2023-06-16] MEDS: HYDROcodone/Acetaminophen 5/325 mg Tablet PO PRN (14:24)
[2023-06-16] MEDS: Amlodipine 10 MG TAB PO SCH (21:30)
[2023-06-16] MEDS: Montelukast Sodium 10 mg Tablet PO SCH (21:30)
[2023-06-16] MEDS: Atorvastatin Calcium 40 MG TAB PO SCH (21:31)
[2023-06-16] MEDS: Benzonatate 100 MG CAP PO PRN (23:08)
[2023-06-17 07:46] VITALS: TEMP 98.2
[2023-06-17] MEDS: Enoxaparin 40 MG (0.4 mL) SYRINGE SC SCH (08:58)
[2023-06-17] MEDS: Doxycycline 100 MG CAP PO SCH (09:05)
[2023-06-17] MEDS: Cefdinir 300 MG CAP PO SCH (09:05)
[2023-06-17 11:58] VITALS: BP 134/62
== END 2023-06-17 13:26 | disposition home or self-care (01) | DRG 291 ==
LOC: ERS 18:34 → INTOOBSV 21:46 → 2NO 21:46 → OBSVTOIN 06-16 14:16
PROVIDERS: ADMIT Student in an Organized Health Care Education/Training Program; ATTEND Internal Medicine
DX: I13.0 Hypertensive heart and chronic kidney disease with heart failure and stage 1 through stage 4 chronic kidney disease, or unspecified chronic kidney disease (principal); I50.33 Acute on chronic diastolic (congestive) heart failure; N18.4 Chronic kidney disease, stage 4 (severe); J45.901 Unspecified asthma with (acute) exacerbation; I27.20 Pulmonary hypertension, unspecified; M35.00 Sjogren syndrome, unspecified; M06.9 Rheumatoid arthritis, unspecified; E03.9 Hypothyroidism, unspecified; E78.5 Hyperlipidemia, unspecified; K21.9 Gastro-esophageal reflux disease without esophagitis; I25.10 Atherosclerotic heart disease of native coronary artery without angina pectoris; M19.90 Unspecified osteoarthritis, unspecified site; G43.909 Migraine, unspecified, not intractable, without status migrainosus; I25.2 Old myocardial infarction; Z91.041 Radiographic dye allergy status; Z91.040 Latex allergy status; Z88.1 Allergy status to other antibiotic agents; Z79.899 Other long term (current) drug therapy
CPT/HCPCS: 36415; 36416; 71045; 80048; 80053; 83735; 83880; 84484; 85025; 93005; 93798; 94640; 96372; 96374; 96375; 96376; G0378; J1650; J1940; J2920; J7620